=== PATIENT | female | born 1955 | race Caucasian/White ===

== ENCOUNTER → 2017-02-21 | Outpatient (CLI) | payer OTHER ==
[2016-09-22 11:00] VITALS: BP 119/54
[~2017-02-21] MED LIST: CHOL100013 PO; CYAN25008 PO; HYDR-2666 PO; IBUP-1007 PO; POTA10TA5 PO; TRAM50TA PO
--- NOTE | 2017-02-21 13:05 | RAD ---
Abdominal ultrasound, 02/21/2017: History: Left-sided abdominal swelling and bloating The gallbladder is surgically absent. The liver is enlarged measuring 18 cm in craniocaudad extent at the level of the right lobe. It demonstrates generalized increased echogenicity, most commonly due to fatty change. No hepatic mass is identified. The pancreas was obscured by overlying bowel. The spleen is of normal size. No renal abnormality is detected. The abdominal aorta and inferior vena cava were largely obscured by overlying bowel. No free fluid is evident in the abdomen. IMPRESSION: 1. Status post cholecystectomy. 2. Mild hepatomegaly with increased hepatic echogenicity suggesting fatty change. 3. The pancreas and central retroperitoneum were obscured by overlying bowel.
== END | disposition home or self-care (01) ==
LOC: US 10:10
PROVIDERS: ATTEND Surgery
DX: R19.09 Other intra-abdominal and pelvic swelling, mass and lump (principal); Z86.000 Personal history of in-situ neoplasm of breast
CPT/HCPCS: 76700

== ENCOUNTER → 2017-03-07 | Outpatient (CLI) | payer OTHER ==
[2016-09-22 11:00] VITALS: BP 119/54
[~2017-03-07] MED LIST changes: +KETO10TA PO; +LISI10TA2 PO
--- NOTE | 2017-03-08 01:13 | PAIN ---
DATE OF SERVICE: 03/07/2017 INITIAL CONSULTATION FOR PAIN CLINIC CHIEF COMPLAINT: Left anterior chest wall pain. HISTORY OF PRESENT ILLNESS: This is a 61-year-old female who presents with history of pain with history of left mastectomy in September 2016 with pain starting one month after the healing of the initial surgical procedure. The patient reports that she did very well with the healing, but the pain has been fairly persistent and is in a moderate to severe level of pain, rated as 6 on a scale of 10 on the anterior left chest wall just superior to the aspect of the previous mastectomy scar. The patient reports it is not tender in the scar itself or below it. She has some minor swelling below the scar, but this is not tender or significantly bothersome to her. The area above the mastectomy scar in the left anterior chest wall has some increased hypersensitivity to light touch and clothing contacting it, as well as with firmer pressure, and also with lying on her left side. When she is trying to sleep it disturbs the area ____ painful enough not to let her sleep as well. The patient reports no radiation of the pain into her arm, or back or into her neck. Rates the pain as far as limitation goes as a 4 with family and home responsibilities, recreation and sexual behavior and life support activities, 5 with occupation, 2 with social activity and 0 with self-care activities. The patient has good mobility of the left shoulder and demonstrates that freely without significant limitation of pain involved with rotational motion of the left shoulder. The patient reports no other complaints at this time. PAST MEDICAL HISTORY: Significant for hypertension, left ductal carcinoma in situ, status post mastectomy, again 09/2016 with history of anemia, history of headaches and urinary frequency. Other surgeries include appendectomy, cholecystectomy and hysterectomy. CURRENT MEDICATIONS: Include lisinopril, tramadol, multivitamins, and ibuprofen over the counter. ALLERGIES: The patient reports the tramadol helps the pain to about a 50% level, Tylenol as well and less so with ibuprofen. ALLERGIES: THE PATIENT IS ALLERGIC TO SULFA AND CODEINE WELL ASPIRIN. FAMILY HISTORY: Significant for cancer in the patient's father, also heart disease in her father and blood pressure issues in both parents. SOCIAL HISTORY: The patient does not smoke, does not drink alcohol, is , lives with her spouse, lives locally in [place], [place]. REVIEW OF SYSTEMS: The patient's review of systems is positive for those items mentioned in history of present illness. All systems reviewed and otherwise negative. It is complete, full and well documented on the patient's chart. PHYSICAL EXAMINATION: VITAL SIGNS: Blood pressure 154/79, pulse 80, respirations 16 and temperature 97.0 degrees Fahrenheit. Height is 5 feet, weight is 227 pounds. GENERAL: The patient is awake, alert, oriented, appropriate, very pleasant demeanor. HEENT: Head shows normocephalic, atraumatic. Extraocular movements are intact and symmetrical. Oral cavity: Mucous membranes moist and pink. Dentition is intact. NECK: Shows anterior throat supple without palpable lymphadenopathy noted. Swallow reflex is symmetrical. CHEST: Shows previous well-healed surgical scar from mastectomy on the left side. Breath sounds are clear to auscultation bilaterally. HEART: Shows S1 and S2 clear. No murmurs auscultated. ABDOMEN: Obese, soft, nontender, nondistended. No palpable organomegaly is noted. No rebound or guarding demonstrated. BACK: The patient's back shows midline spine with minor increase in thoracic kyphosis, but normal lumbar lordotic curvature without significant tenderness throughout. MUSCULOSKELETAL: With inspection of the patient's anterior chest and palpation shows even with light touch some increased hyperesthesia with the light touch over the left anterior chest superior to the surgical scar in approximately the mid axillary line extending medially to the sternocostal cartilage and laterally to the axillary fold. No discoloration, no bruising, no radiation of pain. With deeper palpation pain sensation is essentially only slightly increased when not severe in nature, but certainly palpable in a fairly well circumscribed area over the left anterior chest wall, ribs are easily palpable, no fractures are palpated. No abnormalities and no significant tenderness in the costochondral cartilages as well. No specific allodynia is elicited, but just some hyperesthesia over the area. IMPRESSION: This is a 61-year-old female with history of mastectomy secondary to ductal carcinoma in situ in 09/2016 with some postoperative pain consistent with some neuropathic qualities over the left anterior chest wall. PLAN: Options were discussed with the patient. We will proceed with initiating Neurontin at 100 mg 3 times daily as tolerated. Also, we will prescribe Lidoderm patches for the area. She will return in approximately 4 weeks for followup. The patient was given instruction as well as side effects to be aware with the medications. If not significantly improved, we will try a potential local infiltration field block in the area of the pain as well. The patient is pleased with the plan of treatment at this time and will follow up in approximately 4 weeks as scheduled. KATHY BREWSTER MD DR: MAKI/brandon JOB#: [id number] / [id number] LÓPEZ Willis MD
== END | disposition home or self-care (01) ==
LOC: PNCL 10:30
PROVIDERS: ATTEND Anesthesiology
DX: R07.89 Other chest pain (principal)
CPT/HCPCS: 99214

== ENCOUNTER → 2017-04-12 | Outpatient (CLI) | payer OTHER ==
[2016-09-22 11:00] VITALS: BP 119/54
[~2017-04-12] MED LIST changes: +BUPIVACAINE MPF 0.25% 10 ML VIAL. ONE; -HYDR-2666 PO; +HYDR-2758 PO; +methylPREDNISolone ACETATE 40 MG/ML VIAL. ONE
--- NOTE | 2017-04-13 01:31 | PAIN ---
DATE OF SERVICE: 04/12/2017 PROGRESS NOTE FOR PAIN CLINIC DIAGNOSES: Post-surgical pain, status post left mastectomy with left chest wall pain. HISTORY OF PRESENT ILLNESS: The patient is a 61-year-old female who returns for followup status post initial evaluation and medication management with Neurontin and Lidoderm patches. The patient reporting about 25% improvement with the patches the Neurontin. The patient reports she is having some fairly significant drowsiness with the medication, the Neurontin that is otherwise no significant side effects from it. The patient reports that she does feel slightly better, still there is some difficulty sleeping at night. The pain does awaken her, but not every night. The patient reports it is a burning, stabbing, sharp pain that is on and off in intensity, significantly decreased with the Lidoderm patches on the left anterior chest at the area of her left mastectomy which was in 09/2016. The patient reports no new motor or sensory deficits. No new findings or other complaints. PHYSICAL EXAMINATION: VITAL SIGNS: Today, the patient's blood pressure is 111/69, pulse 78, respirations 18, temperature is 97.6 degrees Fahrenheit, height is 5 feet 2 inches, weighs 228 pounds. GENERAL: The patient is awake, alert, oriented, appropriate, very pleasant demeanor. HEENT: Head shows normocephalic, atraumatic. Extraocular movements are intact and symmetrical. Oral cavity shows mucous membranes moist and pink. Dentition is intact. NECK: Shows anterior throat supple without palpable lymphadenopathy noted. Swallow reflex is symmetrical. CHEST: Shows normal on inspection with previous surgical mastectomy on the left side. HEART: With inspection, the heart shows S1 and S2 clear. No murmurs auscultated. With inspection on the left anterior chest, there is some significant tenderness superior to the area of the surgical scar, without significant tenderness inferior to the surgical scar region. This is true throughout the length of the scar with the exception of the last 5 cm distally towards the axilla. No erythema is noted. No abnormalities were palpated. Options were discussed with the patient. The patient's old chart was reviewed as her current medication regimen updated. Current review of systems updated today as well. We will proceed with local peripheral nerve infiltration in the field block fashion of the scar itself on the left side. Risks were discussed including but not limited to bleeding, infection, possibility of intravascular injection sequelae, pneumothorax, side effects of steroid medication, spread of local anesthetic and numbness as well as poor results regarding pain control. The patient understands and wishes to proceed. The patient will return to clinic in approximately 3 weeks for followup, was counseled on return appointment, activity level and side effects to be aware of. Also, we will increase the patient's Neurontin to 200 mg at bedtime and 100 mg in morning and afternoon and maintain Lidoderm patches as prescribed. DIAGNOSES: Postsurgical pain, status post left mastectomy. PROCEDURE: Left peripheral nerve field block, left anterior chest under sterile prep and drape using local anesthetic. Medication injected was total of 40 mg of Depo-Medrol plus total of 10 mL preservative-free 0.25% bupivacaine. CONDITION ON DISCHARGE: Stable. The patient tolerated the procedure well, had no complications. KATHY BREWSTER MD DR: MAKI/brandon JOB#: [id number] / [id number]
== END | disposition home or self-care (01) ==
LOC: PNCL 10:20
PROVIDERS: ATTEND Anesthesiology
DX: G89.18 Other acute postprocedural pain (principal); I10 Essential (primary) hypertension; E66.9 Obesity, unspecified; Z90.49 Acquired absence of other specified parts of digestive tract; Z90.12 Acquired absence of left breast and nipple; Z90.710 Acquired absence of both cervix and uterus
CPT/HCPCS: 64450; J1030; J3490

== ENCOUNTER → 2017-05-03 | Outpatient (CLI) | payer OTHER ==
[2016-09-22 11:00] VITALS: BP 119/54
[~2017-05-03] MED LIST changes: +IOHEXOL 180 MG/ML 10 ML VIAL. ONE; +methylPREDNISolone ACETATE 80 MG/ML VIAL. ONE
== END | disposition home or self-care (01) ==
LOC: PNCL 09:44
PROVIDERS: ATTEND Anesthesiology
DX: G89.18 Other acute postprocedural pain (principal); I10 Essential (primary) hypertension; E66.9 Obesity, unspecified; Z68.44 Body mass index [BMI] 60.0-69.9, adult; Z90.710 Acquired absence of both cervix and uterus; Z88.6 Allergy status to analgesic agent; Z88.2 Allergy status to sulfonamides; Z79.82 Long term (current) use of aspirin
CPT/HCPCS: 64450; J1030; J3490; J1040

== ENCOUNTER → 2017-08-14 | Outpatient (CLI) | payer OTHER ==
[2016-09-22 11:00] VITALS: BP 119/54
[~2017-08-14] MED LIST changes: -BUPIVACAINE MPF 0.25% 10 ML VIAL. ONE; -IOHEXOL 180 MG/ML 10 ML VIAL. ONE; -methylPREDNISolone ACETATE 40 MG/ML VIAL. ONE; -methylPREDNISolone ACETATE 80 MG/ML VIAL. ONE
--- NOTE | 2017-08-14 13:24 | RAD ---
DATE: 08/14/2017 EXAM: DIGITAL DIAGNOSTIC RT HISTORY: The history of left breast malignancy with subsequent mastectomy is noted. The patient reports inversion of her right nipple over the past 4 months COMPARISON: 02/09/2016 This study was interpreted with the benefit of Computerized Aided Detection (CAD ). FINDINGS: Breast Density: SCATTERED The breast parenchyma shows scattered fibroglandular densities. Breast parenchyma level B. Scattered benign-appearing calcifications are noted on the conventional images there is a density seen laterally in the right breast on the CC image. Additional images were obtained and a definite mass or abnormality laterally in the breast is not seen although the density does persist on the rolled medial view. It likely reflects summation artifact. Targeted ultrasound to the lateral aspect of the breast was performed. No definite abnormality is seen corresponding to the density (again probably reflecting summation artifact) laterally in the breast. Ultrasound targeted to the periareolar position of the breast was also performed. At the 12:30 position of the breast 3 cm from the nipple is a nonvascular mass which is probably benign. Biopsy is not felt warranted at this time but follow-up targeted ultrasound and mammography in 3-4 months is advised IMPRESSION: Probable benign mammographic and ultrasound findings as outlined above. Follow-up mammography and targeted ultrasound in 3-4 months advised BI-RADS CATEGORY: 3 PROBABLE BENIGN FINDING(S-SHORT INTERVAL FOLLOW-UP SUGGESTED RECOMMENDED FOLLOW-UP: 3M 3 MONTH FOLLOW-UP PQRS compliance statement: Patient information was entered into a reminder system with a target due date 12/15/2017 for the next mammogram. Mammography is a sensitive method for finding small breast cancers, but it does not detect them all and is not a substitute for careful clinical examination. A negative mammogram does not negate a clinically suspicious finding and should not result in delay in biopsying a clinically suspicious abnormality. "Our facility is accredited by the [employer] Mammography Program." MTDD
== END | disposition home or self-care (01) ==
LOC: MAMMO 09:15
PROVIDERS: ATTEND Surgery
DX: R92.2 Inconclusive mammogram (principal); Z85.3 Personal history of malignant neoplasm of breast
CPT/HCPCS: 76641; G0206; 77065

== ENCOUNTER → 2017-08-29 | Outpatient (CLI) | payer OTHER ==
[2016-09-22 11:00] VITALS: BP 119/54
[~2017-08-29] VITALS: Ht 157.5 cm; Wt 106.1 kg
[~2017-08-29] MED LIST changes: +LIDOCAINE 2%/EPI 1:100,000 20 ML VIAL. IJ ONE
--- NOTE | 2017-08-30 14:43 | PATHOLOGY ---
PATHOLOGY REPORT * * * * * * * * FINAL DIAGNOSIS: Breast tissue, right breast mass core biopsies: - Fibrocystic changes with the following components: - Stromal fibrosis. - Duct ectasia. - Periductal chronic inflammation, focal. - Cystic change. - Apocrine metaplasia, focal. - Mild ductal epithelial hyperplasia, focal. - Focal medial arterial calcification and few microcalcifications of breast. COMMENT: There is no atypia or evidence of malignancy. (JPM:rlm; 08/30/2017) REPORT ELECTRONICALLY SIGNED BY: Phillip Marks M.D. DATE/TIME: 08/30/2017 14:42 * * * * * * * * GROSS PATHOLOGY: A. In formalin labeled "Hue Flowers, right breast 12:30" and consists of multiple tissue cores/fragments aggregating to 1.5 x 1.0 x 0.4 cm. The cold ischemic time is 5 minutes. The formalin fixation time is 10 hours. Totally submitted as A1. (DEISI; 08/29/2017) INITIAL CPT CODE(S): A; 89887 Professional services performed [place] [address] Technical services performed by [facility] at [address] [place] [address]. SPECIMEN(S) RECEIVED: A.Right breast mass CLINICAL HISTORY: Right breast mass PATIENT: HUE FLOWERS /AGE: 11 1955 (Age: 61) PATIENT #: [id number] ALT CASE #: SPECIMEN COLLECTION DATE: 08/29/2017 SPECIMEN RECEIVED DATE: 08/29/2017 [facility] - [address] [place] [address] - PHONE: [phone] * * * END OF REPORT * * *
== END | disposition home or self-care (01) ==
LOC: US 08:09
PROVIDERS: ATTEND Surgery
DX: N63.10 Unspecified lump in the right breast, unspecified quadrant (principal)
CPT/HCPCS: 76942; 88305; C1713; G0206; 77065

== ENCOUNTER → 2018-02-05 | Outpatient (CLI) | payer OTHER | END | disposition home or self-care (01) | LOC: MAMMO 10:05 | DX: R92.8 Other abnormal and inconclusive findings on diagnostic imaging of breast (principal) | CPT/HCPCS: 77065 ==

== ENCOUNTER → 2018-02-27 | Outpatient (CLI) | payer OTHER ==
[~2018-02-27] MED LIST changes: -CHOL100013 PO; +CONTRAST GIVEN MC; -CYAN25008 PO; -HYDR-2758 PO; -IBUP-1007 PO; +IOHEXOL 300 MG/ML 100ML VIAL. IJ; -KETO10TA PO; -LIDOCAINE 2%/EPI 1:100,000 20 ML VIAL. IJ ONE; -LISI10TA2 PO; -POTA10TA5 PO; -TRAM50TA PO
== END | disposition home or self-care (01) ==
LOC: MAMMO 08:07
DX: N64.52 Nipple discharge (principal); Z86.000 Personal history of in-situ neoplasm of breast
CPT/HCPCS: 76641

== ENCOUNTER → 2018-05-10 | Outpatient (CLI) | payer OTHER ==
[~2018-05-10] MED LIST changes: -CONTRAST GIVEN MC; +CONTRAST GIVEN. MC; -IOHEXOL 300 MG/ML 100ML VIAL. IJ
[2018-05-10] MEDS: IOHEXOL 240 MG/ML 50ML VIAL. PO (10:04)
[2018-05-10] MEDS: IOHEXOL 300 MG/ML 100ML VIAL. IV (10:04)
== END | disposition home or self-care (01) ==
LOC: CT 08:09
DX: K21.9 Gastro-esophageal reflux disease without esophagitis (principal); K76.0 Fatty (change of) liver, not elsewhere classified; I10 Essential (primary) hypertension; Z90.49 Acquired absence of other specified parts of digestive tract
CPT/HCPCS: 74177; Q9966; Q9967

== ENCOUNTER → 2018-08-13 | Outpatient (CLI) | payer OTHER ==
[2016-09-22 11:00] VITALS: BP 119/54
[~2018-08-13] MED LIST changes: +CHOL100013 PO; -CONTRAST GIVEN. MC; +CYAN25008 PO; +HYDR-2758 PO; +IBUP-1007 PO; +KETO10TA PO; +LISI10TA2 PO; +OMEP20CA9 PO; +POTA10TA12 PO; +TRAM50TA PO
--- NOTE | 2018-08-13 09:29 | RAD ---
DATE: 08/13/2018 EXAM: DIGITAL DIAGNOSTIC RT HISTORY: Follow-up benign breast biopsy COMPARISON: 02/05/2018, 08/29/2017 This study was interpreted with the benefit of Computerized Aided Detection (CAD). Breast Density: SCATTERED The breast parenchyma shows scattered fibroglandular densities. Breast parenchyma level B. FINDINGS: An old breast biopsy marker is again noted in the retroareolar region. No new or enlarging breast densities are seen. Numerous benign type calcifications are present. No suspicious microcalcifications have developed. IMPRESSION: Stable right mammograms without evidence of malignancy. BI-RADS CATEGORY: 2 BENIGN FINDING(S) RECOMMENDED FOLLOW-UP: 12M 12 MONTH FOLLOW-UP PQRS compliance statement: Patient information was entered into a reminder system with a target due date for the next mammogram. Mammography is a sensitive method for finding small breast cancers, but it does not detect them all and is not a substitute for careful clinical examination. A negative mammogram does not negate a clinically suspicious finding and should not result in delay in biopsying a clinically suspicious abnormality. "Our facility is accredited by the [employer] Mammography Program."
== END | disposition home or self-care (01) ==
LOC: MAMMO 08:56
PROVIDERS: ATTEND Surgery
DX: R92.8 Other abnormal and inconclusive findings on diagnostic imaging of breast (principal)
CPT/HCPCS: 77065

== ENCOUNTER → 2019-08-12 | Outpatient (CLI) | payer MEDICARE ==
[2016-09-22 11:00] VITALS: BP 119/54
[~2019-08-12] MED LIST changes: -HYDR-2758 PO; +HYDR-2761 PO; +OMEP20CA10 PO; -OMEP20CA9 PO; +REGADENOSON 0.4 MG/5 ML DISP.SYRIN. IV ONE
--- NOTE | 2019-08-13 13:21 | RAD ---
MR#: [id number] Date of Study: 08/13/2019 Ordering Physician: NAOMI PERES, Referring Physician: ROBERTO ALEXANDRE Tech: RT Paul Chirinos) (N) APPROVED REPORT Test Type: Pharmacological Stress Nurse/Tech: ISHA LUTHER Test Indications: CHEST PAIM, SOB, PALPITATIONS, SWEATS Cardiac History: HTN, See Electronic Medical Record Medications: SEE EMR Medical History: SEE EMR, LEFT MASTECTOMY Resting ECG: SR Resting Heart Rate: 94 bpm Resting Blood Pressure: 147/79mmHg Pretest Chest Pain: No chest pain Nurse/Tech Notes S1,S2,LUNGS CTA, DENIES SOA OR CP AT THIS TIME Consent: The procedure was explained to the patient in lay terms. Informed consent was witnessed. Geraldo eout was entered into [employer]. History and Stress Test performed by RT Richmond (Gustavo) (N) Pharm. Details Pharmacologic stress testing was performed using 0.4mg per 5ml of regadenoson given intravenously ove r 7-10 seconds. Stress Symptoms PT BECAME TACHYCARDIC AND NAUSEATED, DENIED CP POST EXERCISE Reason for Termination: Infusion complete Max HR: 135 bpm Max Blood Pressure: 158/82mmHg Blood Pressure response to exercise: Normal blood pressure response during stress. Heart Rate response to exercise: NORMAL RESPONSE TO STRESS Chest Pain: No. Arrhythmia: No. ST Change: No. INTERPRETATION Stress EKG Conclusion: The resting EKG shows a sinus rhythm with mild nonspecific ST segment changes. The stress EKG shows no significant changes from baseline. No EKG evidence of stressed induced ischemia. Imaging Protocol IMAGE PROTOCOL: Rest Tc-99m/stress Tc-99m 2 days Rest: Stress: Viability: Radiopharm.Tc99m DyispjjrwRb32s Sestamibi Qbky29aIh 30.8mCi Duration 14min. 14min. Img Date 08/12/2019 08/13/2019 Inj-Img Dtls67uuw. 60min. Rest Admin Site:IV - Right AntecubitalAdministrator:RT Taran (R)(N) Stress Admin Site: IV - Right AntecubitalAdministrator: Tg Bianchi, RT (R)(N) STRESS DATA End Diast. Vol.76.0mlLVEDV index BSA37.0ml End Syst. Vol.24.0mlLVESV index BSA12.0ml Myocardial Cusk446.0gEject. Fsvsibrq77.0% Stress Scores Regional WT0.00Summed WT3.00 Regional WM0.00Summed WM0.00 LV Perfusion The stress scans showed no significant defects. The rest scans showed no significant defects. Nuclear imaging shows no reversible ischemia or infarct. Wall Motion Normal left ventricular systolic function with no regional wall motion abnormalities and an ejection fraction of 68%. LV Perf. Quant 17 Seg. SSS1.00 17 Seg. SRS0.00 17 Seg. SDS1.00 Stress Defect Extent (% LAD)0.00Rest Defect Extent (% LAD)0.00Rev. Defect Extent (% LAD)0.00 Stress Defect Extent (% LCX) 12.50Rest Defect Extent (% LCX)0.00Rev. Defect Extent (% LCX)6.30 Stress Defect Extent (% RCA)0.00Rest Defect Extent (% RCA)0.00Rev. Defect Extent (% RCA)0.00 Stress Defect Extent (% JUAN)2.20Rest Defect Extent (% JUAN)0.00Rev. Defect Extent (% JUAN)1.10 Conclusion 1. No EKG evidence of stress-induced ischemia. 2. Nuclear imaging shows no reversible ischemia or infarct. 3. Normal left ventricular systolic function with an ejection fraction of 68%. 4. Low risk Lexiscan nuclear stress test. Signed by : Naomi Peres MD Electronically Approved : 08/13/2019 13:21:28
== END | disposition home or self-care (01) ==
LOC: NM 09:27
PROVIDERS: ATTEND Internal Medicine Cardiovascular Disease
DX: R07.9 Chest pain, unspecified (principal); R06.02 Shortness of breath; R00.2 Palpitations; R00.0 Tachycardia, unspecified; I10 Essential (primary) hypertension
CPT/HCPCS: 78452; A9500; 93017; 96376; J2785

== ENCOUNTER → 2019-08-13 | Outpatient (CLI) | payer MEDICARE ==
[2016-09-22 11:00] VITALS: BP 119/54
[~2019-08-13] MED LIST changes: -REGADENOSON 0.4 MG/5 ML DISP.SYRIN. IV ONE
--- NOTE | 2019-08-13 09:49 | CARD ---
MR#: [id number] Date of Study: 08/13/2019 Ordering Physician: NAOMI DOW, Referring Physician: NAOMI DOW, Tech: Yesica Mock APPROVED REPORT EXAM: Two-dimensional and M-mode echocardiogram with Doppler and color Doppler. Other Information Quality : AverageHR: 88bpm Technically limited study due to body habitus. INDICATION Dyspnea RISK FACTORS Hypertension Hyperlipidemia 2D DIMENSIONS RVDd2.9 (2.9-3.5cm)Left Atrium(2D)3.6 (1.6-4.0cm) IVSd0.9 (0.7-1.1cm)Aortic Root(2D)2.6 (2.0-3.7cm) LVDd4.1 (3.9-5.9cm)LVOT Diameter2.0 (1.8-2.4cm) PWd1.0 (0.7-1.1cm)LVDs3.1 (2.5-4.0cm) FS (%) 24.9 %SV37.9 ml LVEF(%)49.8 (>50%) Aortic Valve AoV Peak Radu.133.2cm/sAoV VTI25.4cm AO Peak GR.7.1mmHgLVOT Peak Radu.77.2cm/s LVOT VTI 16.88cmAO Mean GR.4mmHg HOLLY (VMAX)1.45pd0MLI (VTI)2.12cm2 Mitral Valve MV E Cmjyucey44.5cm/sMV DECEL WCVL046jv MV A Gftbdxtd88.8cm/sMV MKZ74wt E/A Ratio0.9MVA (PHT)5.97cm2 TDI E/Lateral E'10.3E/Medial E'12.1 Pulmonary Valve PV Peak Jndhdgjx712.1cm/sPV Peak Grad.4mmHg Tricuspid Valve TR P. Ssotkwwe059cq/sRAP GLSGGGCU9ntRi TR Peak Gr.17wrIvMVNV42reVg Pulmonary Vein S1 Eukuyaxr78.1cm/sD2 Bqnsknyy74.8cm/s PVa kfipfmob942yuuj LEFT VENTRICLE The left ventricle is normal size. There is borderline concentric left ventricular hypertrophy. The l eft ventricular systolic function is within normal limits. The Ejection Fraction is 55% There is norm al LV segmental wall motion. Transmitral Doppler flow pattern is Grade I-abnormal relaxation pattern. RIGHT VENTRICLE The right ventricle is normal size. There is normal right ventricular wall thickness. The right ventr icular systolic function is normal. ATRIA The left atrium size is normal. The right atrium size is normal. The interatrial septum is intact wit h no evidence for an atrial septal defect or patent foramen ovale as noted on 2-D or Doppler imaging. AORTIC VALVE The aortic valve is thickened but opens well. Doppler and Color Flow revealed no significant aortic r egurgitation. There is no significant aortic valvular stenosis. MITRAL VALVE The mitral valve is thickened but opens well. There is no evidence of mitral valve prolapse. There is no mitral valve stenosis. Doppler and Color-flow revealed trace mitral regurgitation. TRICUSPID VALVE The tricuspid valve is normal in structure and function. Doppler and Color Flow revealed trace tricus pid regurgitation with an estimated PAP of 26 mmHg. There is no tricuspid valve prolapse or vegetatio n. There is no tricuspid valve stenosis. PULMONIC VALVE Doppler and Color Flow revealed no pulmonic valvular regurgitation. There is no pulmonic valvular yamil nosis. GREAT VESSELS The aortic root is normal in size. The IVC was not visualized. PERICARDIAL EFFUSION There is no evidence of significant pericardial effusion. Critical Notification Critical Value: No <Conclusion> The left ventricular systolic function is within normal limits. The Ejection Fraction is 55% There is normal LV segmental wall motion. Signed by : Hugo Ayala, Electronically Approved : 08/13/2019 09:49:01
== END | disposition home or self-care (01) ==
LOC: ECHO 08:22
PROVIDERS: ATTEND Internal Medicine Cardiovascular Disease
DX: R06.09 Other forms of dyspnea (principal)
CPT/HCPCS: 93306

== ENCOUNTER → 2019-10-16 | Outpatient (CLI) | payer MEDICARE ==
[2016-09-22 11:00] VITALS: BP 119/54
[~2019-10-16] MED LIST changes: +OMEP-229 PO; -OMEP20CA10 PO
--- NOTE | 2019-10-17 16:07 | RAD ---
DATE: 10/16/2019 EXAM: MAMMO PRATEEK DIAG RT HISTORY: Abnormal mammogram COMPARISON: 08/14/2017, 08/29/2017, 02/05/2018 right unilateral diagnostic mammographic exams This study was interpreted with the benefit of Computerized Aided Detection (CAD). Breast Density: SCATTERED The breast parenchyma shows scattered fibroglandular densities. Breast parenchyma level B. FINDINGS: In addition to standard images, spot magnification imaging of right upper outer breast calcifications was performed. Right upper outer breast calcifications are present. These appears slightly increased since the prior examination. IMPRESSION: Indeterminate right upper-outer breast calcifications. BI-RADS CATEGORY: 4 SUSPICIOUS ABNORMALITY- BIOPSY SHOULD BE CONSIDERED RECOMMENDED FOLLOW-UP: BIO BIOPSY RECOMMENDED. Stereotactic biopsy of right upper-outer breast calcifications is recommended. Patient was informed of findings and recommendations at the time of her visit. Dr. Contreras was contacted. RS compliance statement: Patient information was entered into a reminder system with a target due date for the next mammogram. Mammography is a sensitive method for finding small breast cancers, but it does not detect them all and is not a substitute for careful clinical examination. A negative mammogram does not negate a clinically suspicious finding and should not result in delay in biopsying a clinically suspicious abnormality. "Our facility is accredited by the [employer] Mammography Program."
== END | disposition home or self-care (01) ==
LOC: MAMMO 09:24
PROVIDERS: ATTEND Surgery
DX: R92.1 Mammographic calcification found on diagnostic imaging of breast (principal); Z85.3 Personal history of malignant neoplasm of breast
CPT/HCPCS: 77065; G0279; 77061

== ENCOUNTER → 2019-11-12 | Outpatient (CLI) | payer MEDICARE ==
[2016-09-22 11:00] VITALS: BP 119/54
[~2019-11-12] MED LIST changes: +AMLO5TAB10 PO; +ATOR20TA58 PO; +LIDOCAINE 2%/EPI 1:100,000 20 ML VIAL. IJ ONE; +LIDOCAINE WITH 8.4% SOD BICARB 3 ML DISP.SYRIN. INJ ONE; +LOSA25TA54 PO; -OMEP-229 PO; +OMEP20CA16 PO; +OMEP40CA45 PO
--- NOTE | 2019-11-12 16:37 | RAD ---
Examination: STEREOTACTIC BREAST BIOPSY RT, DIGITAL DIAGNOSTIC RT History: Right breast microcalcifications Comparison/Correlation: 09/16/2019 diagnostic mammographic Exam Findings: Risks and benefits of stereotactic right breast biopsy procedure were discussed with the patient and informed consent was obtained. Initially, a lateral approach was planned. Due to vasculature along the expected needle course by using a lateral approach, a superior approach was utilized. Preliminary image was acquired. Stereotactic images were then acquired. Cleansing with Betadine was performed along the superior aspect of the right outer breast. 5 cc 1 percent lidocaine was administered at the interspace at site of scalpel incision placement and more deeply to the level of the calcifications. A gauge core biopsy needle was placed into the right breast. Stereotactic images were acquired to confirm placement. The needle was fired and stereotactic images again were obtained confirming needle placement. A total of 12 samples were obtained. The patient did experience pain and has result 10 cc 1 percent lidocaine with epinephrine was administered during obtaining of the biopsies. 5 cc 1 percent lidocaine was also administered. Specimen radiograph obtained demonstrates microcalcifications within the obtained sample. Larger coarse calcifications also are seen. Biopsy clip marker was then placed. Subsequent ML and CC images of the right breast were obtained and reviewed on a mammography workstation. Clip marker is evident at the right upper outer aspect at the site of previously demonstrated calcifications. No hematoma collection although slightly high density which may represent edema and minimal hemorrhage is noted at the biopsy site. Impression: Successful stereotactic biopsy of the right upper outer breast where calcifications were noted on previous mammographic exam. Specimen sent to the lab. The patient tolerated the procedure well without immediate complications. PQRS Compliance Statement: One or more of the following individualized dose reduction techniques were utilized for this examination: 1. Automated exposure control 2. Adjustment of the mA and/or kV according to patient size 3. Use of iterative reconstruction technique Electronically signed by: Lukasz Melgar MD (11/12/2019 4:35 PM) [facility]
--- NOTE | 2019-11-14 15:07 | PATHOLOGY ---
[facility] Accession Number: [id number] . 01 Material submitted: . breast - RIGHT BREAST TISSUE, SUPERIOR LATERAL. Modifiers: right, superior, lateral . 01 Clinical history: . Right breast microcalcifications . 01 Frozen section diagnosis: . . /QMS . 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 SEE COMMENT. - Proliferative fibrocystic changes with focal florid ductal epithelial hyperplasia. (JPM:jorge luis/tania; 11/14/2019) MBR 11/14/2019 1446 Local . 02 Comment: Sections of the right superior lateral breast needle biopsy reveal areas of low-grade ductal carcinoma in situ of cribriform type. There are a few small foci of invasive mammary carcinoma, each measuring no more than 1 mm in greatest dimension. Tumor cells show focal tubule formation and are focally present in infiltrating cords. The invasive tumor shows low-grade nuclei and no significant mitotic activity. A limited panel of immunoperoxidase stains is obtained on block A3 and yields the following results: . P63: Absence of myoepithelial cells within area of invasive tumor; presence of myoepithelial cells within DCIS. AE1/AE3: DCIS positive; invasive carcinoma absent in level examined. E-cadherin: DCIS positive; invasive carcinoma absent in level examined. . The morphologic findings are supportive of the diagnosis of microinvasive ductal carcinoma, histologic grade I, arising within a background of low-grade ductal carcinoma in situ of cribriform type. The biopsy otherwise shows proliferative fibrocystic changes with focal moderate/florid ductal epithelial hyperplasia. There are microcalcifications identified, which are primarily associated with fibrocystic changes. An attempt will be made to obtain breast prognostic studies on block A3, although the invasive tumor may not be present in the deeper levels needed for these studies. . The case is also examined by Dr. Ruiz, who concurs with the diagnosis. . (JPM:parking enforcement manager; 11/14/2019) Special stains performed: Immunoperoxidase stains for p63, AE1/AE3, and E-cadherin on A3. . 02 Electronically signed: . Phillip Marks MD, Pathologist NPI- [id number] . 01 Gross description: . The specimen is received in formalin, labeled "Hue Ambrocio, right breast tissue superior lateral". Received within a plastic cassette are multiple needle cores of fibrofatty tissue measuring 3.2 x 3.1 x 0.5 cm in aggregate dimensions. The specimen is submitted entirely in cassettes A1 through A3. The cold ischemic time is 11 minutes. The total formalin fixation time is 12 hours and 35 minutes. ([facility]; 11/12/2019) QAC/QAC 11/12/2019 1514 Local . 02 Pathologist provided ICD-10: C50.911, D05.11, N60.11, N62 . 02 CPT . 366554, T50555, [id number] Specimen Comment: A courtesy copy of this report has been sent to [phone], [phone] Specimen Comment: [id number], Specimen Comment: Report sent to ,DR RIOS / DR LYNCH Performed at: 01 [facility] [address], [place], [place] [id number] MD Samm Garcia MD Phone: [phone] Performed at: 02 [facility] [address], [place] [id number] MD Phillip Marks MD Phone: [phone]
== END ==
LOC: MAMMO 07:34
PROVIDERS: ATTEND Surgery
DX: R92.0 Mammographic microcalcification found on diagnostic imaging of breast (principal); C50.911 Malignant neoplasm of unspecified site of right female breast
CPT/HCPCS: 19081; 77022; 77065; 88305; 88341; 88342; 88361; C1713; J3490; 19085

== ENCOUNTER 2019-12-02 07:27 | Observation (INO) | payer MEDICARE ==
[~2019-12-02] VITALS: Ht 167.6 cm; Wt 106.3 kg
[2019-12-02] VITALS (9 sets, daily range): BP systolic 104–155; BP diastolic 52–77
[~2019-12-02 07:27] MED LIST changes: +IV RINGERS,LACTATED 1000ML 1,000 ML IV SCH; +LIDOCAINE 1% PF 2 ML VIAL. ID PRN; -LIDOCAINE 2%/EPI 1:100,000 20 ML VIAL. IJ ONE; -LIDOCAINE WITH 8.4% SOD BICARB 3 ML DISP.SYRIN. INJ ONE; +ONDANSETRON PF 4 MG/2 ML VIAL. IV PRN; +PROCHLORPERAZINE 10 MG/2 ML VIAL. IV PRN; +fentaNYL PF VIAL 100 MCG/2 ML VIAL IV PRN
[2019-12-02] MEDS ORDERED: SCOPOLAMINE 1.5MG PATCH. TD ONE (08:00)
[2019-12-02] MEDS ORDERED: fentaNYL PF VIAL 100 MCG/2 ML VIAL ONE ×4 (08:07→13:21)
[2019-12-02] MEDS ORDERED: SEVOFLURANE 61 TO 120 MINUTES. IH ONE (08:07)
[2019-12-02] MEDS ORDERED: MIDAZOLAM HCL/PF 2 MG/2 ML VIAL. ONE (08:07)
[2019-12-02] MEDS ORDERED: LIDOCAINE 2% PF 5 ML VIAL. ONE (08:08)
[2019-12-02] MEDS ORDERED: PROPOFOL 20 ML IV ONE (08:08)
[2019-12-02] MEDS ORDERED: GLYCOPYRROLATE 1 MG/5 ML VIAL. ONE (08:08)
[2019-12-02] MEDS ORDERED: DEXAMETHASONE SOD PHOS 4 MG/ML VIAL ONE (08:08)
[2019-12-02] MEDS ORDERED: ROCURONIUM 50 MG/5 ML VIAL. ONE (08:08)
[2019-12-02] MEDS ORDERED: NEOSTIGMINE METHYLSULFATE 5 MG/5 ML SYRINGE. ONE (08:08)
[2019-12-02] MEDS ORDERED: ONDANSETRON PF 4 MG/2 ML VIAL. ONE (08:08)
[2019-12-02] MEDS ORDERED: ISOSULFAN BLUE 1% 50 MG/5 ML VIAL. SQ ONE (09:18)
--- NOTE | 2019-12-02 09:40 | RAD ---
EXAM: RIGHT BREAST LYMPHOSCINTIGRAPHY. HISTORY: Right breast cancer. Lymphoscintigraphy is requested. FINDINGS: The procedure along with its risks and benefits were explained to the patient. She agreed to proceed. A timeout procedure was performed. The skin about the right areola was sterilely prepped. 900 uCi Tc-99m Tilmanocept was injected intradermally at the right upper outer quadrant of the right areola. Imaging was not performed. The patient was transferred to the OR for additional procedures. IMPRESSION: 1. Successful right breast injection for lymphoscintigraphy. Electronically signed by: Kenroy Mcfadden MD (12/02/2019 9:37 AM) [facility]
[2019-12-02] MEDS ORDERED: PHENYLEPHRINE in 0.9% NACL PF 1 MG/10 ML SYRINGE. IV ONE (10:57)
--- NOTE | 2019-12-02 12:17 | PDOC4 ---
Operative Note Operative Note Operative Note: Preoperative Diagnosis: Right breast microinvasive carcinoma with DCIS Postoperative Diagnosis: Same Procedure: Right simple mastectomy with sentinel lymph node biopsy Surgeon: Ben Fur Storage Clerk: Yue Chance Anesthesia: Gen. EBL: 100 ml Specimen: Right breast stitch at 12 o'clock position to pathology Drains: 19 Filipino AUTUMN 2 Complications: None Indication: The patient is a 64-year-old female with a prior history of left breast ductal carcinoma in situ. 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 She strongly prefers for complete mastectomy and has no interest in breast conservation. The plan therefore is a simple mastectomy and we will incorporate a sentinel lymph node biopsy. The risks of surgery were discussed which include bleeding, infection, pain, scar tissue, wound healing problems, anesthetic risk, potential need for additional surgery or procedure. She understands and would like to proceed. Description: The patient was taken the operating room and placed supine on the operating table. Gen. anesthesia was performed. The bilateral chest and right axilla were prepped with ChloraPrep and draped in a standard surgical manner. 5 mL of Lymphazurin were injected deep to the right nipple and areolar complex. Several minutes were allowed to elapse. An elliptical tracing was made across the chest including the nipple areolar complex. The superior lateral aspect of the tracing was incised with a scalpel. Cautery dissection was carried down into the axillary tissues. There was one lymph node showing markedly increased nuclear uptake with a blue channel consistent with a sentinel lymph node. This was harvested from surrounding tissues and sent to pathology. Following this there were no other areas of increased nuclear uptake, blue staining, or palpable adenopathy. Frozen section of the lymph node showed no evidence of metastasis. We then proceeded with the mastectomy. With a scalpel an incision was made at the prior elliptical tracing. Cautery dissection was used to develop the skin flaps. The superior flap was developed first the breast from the skin. This was carried superiorly to below the level of the clavicle. In a similar manner this inferior skin flap was mobilized which included the inframammary fold. In a medial to lateral fashion the right breast was taken off of the chest wall. Several blood vessels were encountered which were readily cauterized. The entire breast was fully excised and a stitch was used to danny the 12 o'clock position. The breast was sent to pathology. Two 19 Filipino round Radhames drains were placed both in the axilla and right chest. The drains exited inferiorly and were secured to the skin with 2-0 silk. The subcutaneous tissue was closed with interrupted 3-0 Vicryl. The skin was closed with 4-0 Monocryl. A sterile OpSite dressing was applied. The patient tolerated the procedure well and was sent to the recovery room in stable condition. At the end the case all counts were correct. LÓPEZ RIOS MD Dec 02, 2019 12:17
[2019-12-02] MEDS: IV NORMAL SALINE 1000ML BAG 1,000 ML IV SCH (12:18)
[2019-12-02] MEDS ORDERED: NALOXONE 0.4 MG/ML VIAL. IV PRN (12:30)
[2019-12-02] MEDS ORDERED: ONDANSETRON PF 4 MG/2 ML VIAL. IVP PRN (12:30)
[2019-12-02] MEDS ORDERED: 0.9 % SODIUM CHLORIDE 10 ML DISP.SYRIN. IV PRN (12:30)
[2019-12-02] MEDS ORDERED: PROCHLORPERAZINE 10 MG/2 ML VIAL. ONE (12:50)
[2019-12-02] MEDS: fentaNYL PF VIAL 100 MCG/2 ML VIAL IV PRN ×2 (12:57→13:11)
[2019-12-02] MEDS: amLODIPine BESYLATE 5 MG TABLET PO SCH (13:00)
[2019-12-02] MEDS: CYANOCOBALAMIN (VITAMIN B-12) 1,000 MCG TABLET. PO SCH (13:00)
[2019-12-02] MEDS: LOSARTAN POTASSIUM 25 MG TABLET. PO SCH (13:00)
[2019-12-02] MEDS: CHOLECALCIFEROL (VITAMIN D3) 1,000 UNIT TABLET PO SCH (13:00)
[2019-12-02] MEDS: IV 1/2 NORMAL SALINE 1,000 ML IV SCH (15:15)
[2019-12-02] MEDS: PANTOPRAZOLE 40 MG TABLET.DR. PO SCH (16:58)
[2019-12-02] MEDS: HYDROcodone/APAP 5/325MG 1 TAB TABLET PO PRN ×2 (18:59→22:26)
[2019-12-02] MEDS ORDERED: ATORVASTATIN CALCIUM 20 MG TABLET PO SCH (21:00)
[2019-12-02] MEDS: HYDROmorphone 2 MG/ML VIAL IV PRN (23:54)
[2019-12-03] MEDS: IV 1/2 NORMAL SALINE 1,000 ML IV SCH ×2 (00:48→13:18)
[2019-12-03 03:00] VITALS: BP 167/76
[2019-12-03] MEDS: HYDROmorphone 2 MG/ML VIAL IV PRN ×2 (03:59→13:50)
[2019-12-03] MEDS: PANTOPRAZOLE 40 MG TABLET.DR. PO SCH (05:10)
[2019-12-03] MEDS: HYDROcodone/APAP 5/325MG 1 TAB TABLET PO PRN ×3 (05:10→16:21)
[2019-12-03 07:00] VITALS: BP 142/79
[2019-12-03] MEDS: LOSARTAN POTASSIUM 25 MG TABLET. PO SCH (08:50)
[2019-12-03] MEDS: CHOLECALCIFEROL (VITAMIN D3) 1,000 UNIT TABLET PO SCH (08:50)
[2019-12-03] MEDS: amLODIPine BESYLATE 5 MG TABLET PO SCH (08:51)
[2019-12-03] MEDS: CYANOCOBALAMIN (VITAMIN B-12) 1,000 MCG TABLET. PO SCH (08:51)
[2019-12-03 11:00] VITALS: BP 163/69
[2019-12-03] MEDS: IV NORMAL SALINE 1000ML BAG 1,000 ML IV SCH (12:18)
--- NOTE | 2019-12-03 12:58 | NUR ---
SW following. Discussed with RN, pt is from home with . RN advised no SW needs at this time. SW will continue to follow should any discharge planning needs arise.
--- NOTE | 2019-12-03 13:48 | PDOC ---
PROGRESS NOTES Subjective Subjective doing ok, some nausea earlier but improving Objective Objective Vital Signs Date Time Temp Pulse Resp B/P (MAP) Pulse Ox O2 Delivery O2 Flow Rate FiO2 12/03/19 13:03 Room Air 12/03/19 11:00 98.0 91 18 163/69 (100) 93 98.0 12/02/19 22:26 2.0 Intake and Output 12/03/19 07:00 Intake Total 2265 ml Output Total 1160 ml Balance 1105 ml Intake Oral 715 ml IV Total 1550 ml Output Drainage Total 1060 ml Estimated Blood Loss 100 ml # Voids 3 Physical Exam Physical Exam AUTUMN drains with bloody output Abdomen: Soft, No tenderness Assessment Assessment POD 1 R mastectomy Plan Plan of Care Drain output significant; will check CBC; if ok then ok to discharge later today Comment Review of Relevant I have reviewed the following items danny (where applicable) has been applied. Medications Current Medications Ondansetron HCl (Zofran) 4 mg PRN Q6HRS PRN IV NAUSEA/VOMITING; Start 12/02/19 at 07:00; Stop 12/03/19 at 06:59; Status DC Fentanyl Citrate (Fentanyl 2ml Vial) 25 mcg PRN Q5MIN PRN IV MILD PAIN 1-3; Start 12/02/19 at 07:00; Stop 12/03/19 at 06:59; Status DC Fentanyl Citrate (Fentanyl 2ml Vial) 50 mcg PRN Q5MIN PRN IV MODERATE TO SEVERE PAIN Last administered on 12/02/19at 13:11; Start 12/02/19 at 07:00; Stop 12/03/19 at 06:59; Status DC Ringer's Solution 1,000 ml @ 30 mls/hr Q24H IV Last administered on 12/02/19at 08:12; Start 12/02/19 at 07:00; Stop 12/02/19 at 18:59; Status DC Lidocaine HCl (Xylocaine-Mpf 1% 2ml Vial) 2 ml PRN 1X PRN ID PRIOR TO IV START; Start 12/02/19 at 07:00; Stop 12/03/19 at 06:59; Status DC Prochlorperazine Edisylate (Compazine) 5 mg PACU PRN PRN IV NAUSEA, MRX1 Last administered on 12/02/19at 12:57; Start 12/02/19 at 07:00; Stop 12/03/19 at 06:59; Status DC Cefazolin Sodium/ Dextrose 50 ml @ 100 mls/hr 1X PREOP PRN IV PRIOR TO PROCEDURE Last administered on 12/02/19at 09:35; Start 12/02/19 at 06:00; Stop 12/02/19 at 18:00; Status DC Scopolamine (Transderm-Scop) 1 patch 1X ONCE TD Last administered on 12/02/19at 08:12; Start 12/02/19 at 08:00; Stop 12/02/19 at 08:01; Status DC Sevoflurane (Ultane) 60 ml STK-MED ONCE IH ; Start 12/02/19 at 08:07; Stop 12/02/19 at 08:07; Status DC Midazolam HCl (Versed) 2 mg STK-MED ONCE .ROUTE ; Start 12/02/19 at 08:07; Stop 12/02/19 at 08:08; Status DC Fentanyl Citrate (Fentanyl 2ml Vial) 100 mcg STK-MED ONCE .ROUTE ; Start 12/02/19 at 08:07; Stop 12/02/19 at 08:08; Status DC Glycopyrrolate (Robinul) 1 mg STK-MED ONCE .ROUTE ; Start 12/02/19 at 08:08; Stop 12/02/19 at 08:08; Status DC Neostigmine [place] (Neostigmine Methylsulfate) 5 mg STK-MED ONCE .ROUTE ; Start 12/02/19 at 08:08; Stop 12/02/19 at 08:08; Status DC Rocuronium [place] (Zemuron) 50 mg STK-MED ONCE .ROUTE ; Start 12/02/19 at 08:08; Stop 12/02/19 at 08:08; Status DC Propofol 20 ml @ As Directed STK-MED ONCE IV ; Start 12/02/19 at 08:08; Stop 12/02/19 at 08:08; Status DC Lidocaine HCl (Lidocaine Pf 2% Vial) 5 ml STK-MED ONCE .ROUTE ; Start 12/02/19 at 08:08; Stop 12/02/19 at 08:08; Status DC Dexamethasone Sodium Phosphate (Decadron) 4 mg STK-MED ONCE .ROUTE ; Start 12/02/19 at 08:08; Stop 12/02/19 at 08:08; Status DC Ondansetron HCl (Zofran) 4 mg STK-MED ONCE .ROUTE ; Start 12/02/19 at 08:08; Stop 12/02/19 at 08:08; Status DC Isosulfan Blue (Lymphazurin Blue) 50 mg STK-MED ONCE SQ Last administered on 12/02/19at 10:04; Start 12/02/19 at 09:18; Stop 12/02/19 at 09:18; Status DC Fentanyl Citrate (Fentanyl 2ml Vial) 100 mcg STK-MED ONCE .ROUTE ; Start 12/02/19 at 10:10; Stop 12/02/19 at 10:11; Status DC Phenylephrine HCl (PHENYLEPHRINE in 0.9% NACL PF) 1 mg STK-MED ONCE IV ; Start 12/02/19 at 10:57; Stop 12/02/19 at 10:58; Status DC Sodium Chloride (Normal Saline Flush) 3 ml QSHIFT PRN IV AFTER MEDS AND BLOOD DRAWS; Start 12/02/19 at 12:30 Sodium Chloride 1,000 ml @ 80 mls/hr [id number] IV Last administered on 12/02/19at 15:15; Start 12/02/19 at 12:18 Acetaminophen/ Hydrocodone Bitart (Lortab 5/325) 1 tab PRN Q4HRS PRN PO MILD PAIN 1-3 Last administered on 12/02/19at 22:26; Start 12/02/19 at 12:30 Acetaminophen/ Hydrocodone Bitart (Lortab 5/325) 2 tab PRN Q4HRS PRN PO MODERATE PAIN, SEVERE PAIN Last administered on 12/03/19at 11:04; Start 12/02/19 at 12:30 Naloxone HCl (Narcan) 0.4 mg PRN Q2MIN PRN IV SEE INSTRUCTIONS; Start 12/02/19 at 12:30 Sodium Chloride 1,000 ml @ 25 mls/hr Q24H IV ; Start 12/02/19 at 12:18 Hydromorphone HCl (Dilaudid) 0.2 mg PRN Q1HR PRN IV PAIN Last administered on 12/03/19at 03:59; Start 12/02/19 at 12:30 Ondansetron HCl (Zofran) 4 mg PRN Q6HRS PRN IVP NAUESA, 1ST CHOICE Last administered on 12/03/19at 08:47; Start 12/02/19 at 12:30 Amlodipine Besylate (Norvasc) 5 mg DAILY PO Last administered on 12/03/19at 08:51; Start 12/02/19 at 13:00 Atorvastatin Calcium (Lipitor) 20 mg QHS PO Last administered on 12/02/19at 22:25; Start 12/02/19 at 21:00 Losartan Potassium (Cozaar) 25 mg DAILY PO Last administered on 12/03/19at 08:50; Start 12/02/19 at 13:00 Vitamin D (Vitamin D3) 1,000 unit DAILY PO Last administered on 12/03/19at 08:50; Start 12/02/19 at 13:00 Cyanocobalamin (Vitamin B-12) 2,500 mcg DAILY PO Last administered on 12/03/19at 08:51; Start 12/02/19 at 13:00 Pantoprazole Sodium (Protonix) 40 mg DAILYAC PO Last administered on 12/03/19at 05:10; Start 12/02/19 at 16:30 Fentanyl Citrate (Fentanyl 2ml Vial) 100 mcg STK-MED ONCE .ROUTE ; Start 12/02/19 at 12:50; Stop 12/02/19 at 12:50; Status DC Prochlorperazine Edisylate (Compazine) 10 mg STK-MED ONCE .ROUTE ; Start 12/02/19 at 12:50; Stop 12/02/19 at 12:51; Status DC Fentanyl Citrate (Fentanyl 2ml Vial) 100 mcg STK-MED ONCE .ROUTE ; Start 12/02/19 at 13:21; Stop 12/02/19 at 13:22; Status DC Active Scripts Active Reported Atorvastatin Calcium 20 Mg Tablet 20 Mg PO DAILY Losartan Potassium (Losartan Potassium) 25 Mg Tablet 25 Mg PO DAILY Amlodipine Besylate 5 Mg Tablet 5 Mg PO DAILY Omeprazole 40 Mg Capsule.dr 40 Mg PO DAILY Vitamin B12 (Cyanocobalamin (Vitamin B-12)) 2,500 Mcg Tablet 2,500 Mcg PO DAILY Vitamin D (Cholecalciferol (Vitamin D3)) 1,000 Unit Capsule 1 Cap PO DAILY Vitals/I & O Vital Sign - Last 24 Hours 12/02/19 12/02/19 12/02/19 12/02/19 14:00 14:00 14:10 14:25 Pulse 93 73 Resp 18 18 B/P (MAP) 120/65 (83) 150/58 (88) Pulse Ox 99 99 O2 Delivery Nasal Cannula Nasal Cannula Nasal Cannula Nasal Cannula O2 Flow Rate 2 2.0 2.0 2.0 12/02/19 12/02/19 12/02/19 12/02/19 14:40 15:25 15:47 15:55 Pulse 97 88 89 91 Resp 18 18 18 18 B/P (MAP) 112/52 (72) 119/62 (81) 104/56 (72) 128/69 (88) Pulse Ox 100 100 100 99 O2 Delivery Nasal Cannula Nasal Cannula Nasal Cannula Nasal Cannula O2 Flow Rate 2.0 2.0 2.0 12/02/19 12/02/19 12/02/19 12/02/19 16:55 18:59 19:00 19:59 Temp 99.1 99.1 Pulse 91 75 Resp 18 18 20 B/P (MAP) 140/77 (98) 149/66 (93) Pulse Ox 99 96 96 O2 Delivery Room Air Room Air Room Air Nasal Cannula O2 Flow Rate 2.0 12/02/19 12/02/19 12/02/19 12/02/19 20:00 22:26 23:00 23:26 Temp 97.7 97.7 Pulse 95 Resp 20 18 20 B/P (MAP) 155/62 (93) Pulse Ox 96 98 96 O2 Delivery Room Air Nasal Cannula Room Air Room Air O2 Flow Rate 2.0 12/02/19 12/03/19 12/03/19 12/03/19 23:54 00:24 03:00 03:59 Temp 97.7 97.7 Pulse 87 Resp 20 20 18 20 B/P (MAP) 167/76 (106) Pulse Ox 96 96 96 96 O2 Delivery Room Air Room Air Room Air 12/03/19 12/03/19 12/03/19 12/03/19 04:29 05:10 06:10 07:00 Temp 98.1 98.1 Pulse 94 Resp 20 20 20 18 B/P (MAP) 142/79 (100) Pulse Ox 96 96 96 94 O2 Delivery Room Air Room Air Room Air Room Air 12/03/19 12/03/19 12/03/19 12/03/19 07:45 08:50 08:51 11:00 Temp 98.0 98.0 Pulse 94 94 91 Resp 18 B/P (MAP) 142/79 149/79 163/69 (100) Pulse Ox 93 O2 Delivery Room Air Room Air 12/03/19 12/03/19 11:04 13:03 O2 Delivery Room Air Room Air Intake and Output 12/02/19 12/02/19 12/03/19 15:00 23:00 07:00 Intake Total 1565 ml 100 ml 600 ml Output Total 520 ml 550 ml 90 ml Balance 1045 ml -450 ml 510 ml LÓPEZ RIOS MD Dec 03, 2019 13:48
--- NOTE | 2019-12-03 13:52 | DISCH ---
DISCHARGE INSTRUCTIONS Condition on Discharge Condition on Discharge: Stable Activity After Discharge Activity Instructions for Disc: Activity as tolerated Diet after Discharge Diet after Discharge: Regular Wound Incision Care Wound/Incision Care: Other, see below (keep dressing clean and dry; home AUTUMN care, record output twice daily) Follow-Up Follow up with: Dr Rios in office in 1 week, call for appt [phone] LÓPEZ RIOS MD Dec 03, 2019 13:52
[2019-12-03 14:41] LABS: BASO # 0.1 x10^3/uL (0.0-0.2); BASO % 1 % (0-3); EOS # 0.1 x10^3/uL (0.0-0.7); EOS % 0 % (0-3); HEMATOCRIT 32.3 % (36.0-47.0); HEMOGLOBIN 10.8 g/dL (12.0-15.5); LYMPH % 19 % (24-48); MEAN CORPUSCULAR HEMOGLOBIN 30 pg (25-35); MEAN CORPUSCULAR HGB CONC 34 g/dL (31-37); MEAN CORPUSCULAR VOLUME 89 fL (79-100); MONO # 1.7 x10^3/uL (0.0-1.1); MONO % 11 % (0-9); NEUT % 69 % (31-73); PLATELET COUNT 223 x10^3/uL (140-400); RED BLOOD COUNT 3.62 x10^6/uL (3.50-5.40); RED CELL DISTRIBUTION WIDTH 14.1 % (11.5-14.5); WHITE BLOOD COUNT 15.9 x10^3/uL (4.0-11.0)
[2019-12-03 15:00] VITALS: BP 127/62
--- NOTE | 2019-12-03 16:34 | NUR ---
Pt. discharged to home with rx, verbalized understanding of discharge instructions. R chest drsg CDI, JPs x [address] Pt[address] demonstrated AUTUMN drain care for home and given cups for measuring and drain record.
--- NOTE | 2019-12-04 07:39 | PDOC3 ---
Discharge Summary Visit Information Date of Admission: Dec 02, 2019 Date of Discharge: Dec 03, 2019 Admitting Diagnosis: R DCIS with microinvasion Brief Hospital Course Allergies Allergies Coded Allergies Type Severity Reaction Last Updated Verified Sulfa (Sulfonamide Antibiotics) Adverse Reaction Intermediate NAUSEA & VOMITING 12/02/19 Yes acetaminophen Adverse Reaction Intermediate Nausea and Vomiting 12/02/19 Yes aspirin Adverse Reaction Intermediate NAUSEA & VOMITING 12/02/19 Yes codeine Adverse Reaction Intermediate NAUSEA AND VOMITING 12/02/19 Yes Vital Signs Vital Signs Date Time Temp Pulse Resp B/P (MAP) Pulse Ox O2 Delivery O2 Flow Rate FiO2 12/03/19 16:21 Room Air 12/03/19 15:00 98.2 79 18 127/62 (83) 95 98.2 Lab Results Laboratory Tests Test 12/03/19 14:35 White Blood Count 15.9 x10^3/uL (4.0-11.0) Red Blood Count 3.62 x10^6/uL (3.50-5.40) Hemoglobin 10.8 g/dL (12.0-15.5) Hematocrit 32.3 % (36.0-47.0) Mean Corpuscular Volume 89 fL (79-100) Mean Corpuscular Hemoglobin 30 pg (25-35) Mean Corpuscular Hemoglobin Concent 34 g/dL (31-37) Red Cell Distribution Width 14.1 % (11.5-14.5) Platelet Count 223 x10^3/uL (140-400) Neutrophils (%) (Auto) 69 % (31-73) Lymphocytes (%) (Auto) 19 % (24-48) Monocytes (%) (Auto) 11 % (0-9) Eosinophils (%) (Auto) 0 % (0-3) Basophils (%) (Auto) 1 % (0-3) Neutrophils # (Auto) 11.0 x10^3/uL (1.8-7.7) Lymphocytes # (Auto) 3.0 x10^3/uL (1.0-4.8) Monocytes # (Auto) 1.7 x10^3/uL (0.0-1.1) Eosinophils # (Auto) 0.1 x10^3/uL (0.0-0.7) Basophils # (Auto) 0.1 x10^3/uL (0.0-0.2) Laboratory Tests Test 12/03/19 14:35 White Blood Count 15.9 x10^3/uL (4.0-11.0) Red Blood Count 3.62 x10^6/uL (3.50-5.40) Hemoglobin 10.8 g/dL (12.0-15.5) Hematocrit 32.3 % (36.0-47.0) Mean Corpuscular Volume 89 fL (79-100) Mean Corpuscular Hemoglobin 30 pg (25-35) Mean Corpuscular Hemoglobin Concent 34 g/dL (31-37) Red Cell Distribution Width 14.1 % (11.5-14.5) Platelet Count 223 x10^3/uL (140-400) Neutrophils (%) (Auto) 69 % (31-73) Lymphocytes (%) (Auto) 19 % (24-48) Monocytes (%) (Auto) 11 % (0-9) Eosinophils (%) (Auto) 0 % (0-3) Basophils (%) (Auto) 1 % (0-3) Neutrophils # (Auto) 11.0 x10^3/uL (1.8-7.7) Lymphocytes # (Auto) 3.0 x10^3/uL (1.0-4.8) Monocytes # (Auto) 1.7 x10^3/uL (0.0-1.1) Eosinophils # (Auto) 0.1 x10^3/uL (0.0-0.7) Basophils # (Auto) 0.1 x10^3/uL (0.0-0.2) Brief Hospital Course Ms. Ambrocio is a 64 old female who presented with right breast DCIS with microinvasion. She elected for a complete mastectomy which was performed on 12/02/19. Surgery was uneventful and she was discharged on POD 1. Discharge Information Condition at Discharge: Stable (1 week) Follow Up: Weeks Disposition/Orders: D/C to Home Scheduled Amlodipine Besylate (Amlodipine Besylate) 5 Mg Tablet, 5 MG PO DAILY for HIGH BLOOD PRESSURE, (Reported) Entered as Reported by: SIMRAN FLAHERTY on 11/28/19 1433 Last Taken: Unknown Dose on 12/02/19 0530 Last Action: Continued on 12/02/19 1223 by LÓPEZ RIOS Atorvastatin Calcium (Atorvastatin Calcium) 20 Mg Tablet, 20 MG PO DAILY for FOR CHOLESTEROL, #30 Ref 0 (Reported) Entered as Reported by: SIMRAN FLAHERTY on 11/28/19 1433 Last Taken: Unknown Dose on 12/01/19 0800 Last Action: Continued on 12/02/19 1223 by LÓPEZ RIOS Cholecalciferol (Vitamin D3) (Vitamin D) 1,000 Unit Capsule, 1 CAP PO DAILY, #30 Ref 3 (Reported) Entered as Reported by: Yaneth Lo on 08/31/16 0856 Last Taken: Unknown Dose on 11/27/19 Last Action: Converted on 12/02/19 1223 by LÓPEZ RIOS Cyanocobalamin (Vitamin B-12) (Vitamin B12) 2,500 Mcg Tablet, 2,500 MCG PO DAILY, (Reported) Entered as Reported by: MILES ABDULLAHI on 09/16/16 1136 Last Taken: Unknown Dose on 11/27/19 Last Action: Converted on 12/02/19 1223 by LÓPEZ RIOS Losartan Potassium (Losartan Potassium ) 25 Mg Tablet, 25 MG PO DAILY for HYPERTENSION, (Reported) Entered as Reported by: SIMRAN FLAHERTY on 11/28/19 1433 Last Taken: Unknown Dose on 12/02/19 0530 Last Action: Continued on 12/02/19 1223 by LÓPEZ RIOS Omeprazole (Omeprazole) 40 Mg Capsule., 40 MG PO DAILY for REFLUX, (Reported) Entered as Reported by: SIMRAN FLAHERTY on 11/28/19 1432 Last Taken: Unknown Dose on 12/02/19 0530 Last Action: Converted on 12/02/19 1223 by LÓPEZ RIOS Discontinued Medications Omeprazole (Omeprazole) 20 Mg Capsule., 1 CAP PO DAILY, #30 Ref 5 (Reported) Discontinued Reason: Prescription changed Entered as Reported by: CLARA LOZANO on 05/10/18 0954 LÓPEZ RIOS MD Dec 04, 2019 07:39
--- NOTE | 2019-12-05 17:07 | PATHOLOGY ---
[facility] Accession Number: [id number] . 01 Material submitted: . PART A: lymph node - SENTINEL LYMPH NODE #1,FS PART B: breast - RIGHT BREAST SUTURE AT 12:00. Modifiers: right . 01 Pre-operative diagnosis: . 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 . 01 Clinical history: . Ductal carcinoma in situ . 02 Frozen section diagnosis: . FROZEN SECTION DIAGNOSIS: (Ruben Williamson M.D.) . FSA1. Tinnie lymph node #1, biopsy: - Lymphoid tissue with no evidence of carcinoma. . Findings relayed to Dr. Contreras at the time of the procedure. . . FROZEN SECTION GROSS DESCRIPTION: Part A is received fresh and is labeled "sentinel lymph node #1" and it consists of a 4.2 x 3.5 x 2.0 cm piece of pink-yellow, fibroadipose tissue. Dissection of the specimen reveals a single partially fatty replaced lymph node which measures 1.3 cm in greatest dimension. This partially fatty replaced lymph node is sectioned and public service representative sections are submitted in A1 for frozen section. Blocks A2 and A3 contained additional possible residual lymphoid tissue. (SKFelicita/yeyo; 12/02/2019) . Frozen section performed at [facility], [address] [place] [address], [place] [address]. MPK/LBQ . 02 Diagnosis: A. Lymph node, sentinel lymph node #1, excisional biopsy: - Negative for tumor. . B. Breast, right mastectomy: - Invasive ductal carcinoma, histologic grade I, is identified within wall of previous biopsy site, measuring up to 0.7 cm in greatest dimension, with associated low-grade ductal carcinoma in situ, cribriform type. - Margins of resection negative for tumor. - No lymphovascular tumor invasion identified. - Previous biopsy site changes with biopsy marker. - Proliferative fibrocystic changes with foci of florid ductal epithelial hyperplasia. - Focal fat necrosis of breast superior and medial to previous biopsy site, with fibrosis, chronic and granulomatous inflammation, and focal hemosiderin-laden macrophages. - Seborrheic keratosis, skin of breast. . (JPM:jorge luis; 12/04/2019) . . . Surgical Pathology Cancer Case Summary . INVASIVE CARCINOMA OF THE BREAST: Resection . . Procedure ___ Total mastectomy (including nipple-sparing and skin-sparing mastectomy) . Specimen Laterality ___ Right . + Tumor Site + ___ Upper outer quadrant . Tumor Size ___ Greatest dimension of largest invasive focus >1 mm (specify exact measurement) (millimeters): 7 mm . Histologic Type ___ Invasive carcinoma of no special type (invasive ductal carcinoma, not otherwise specified) . Histologic Grade ([employer] Histologic Score) . Glandular (Acinar)/Tubular Differentiation ___ Score 2 (10% to 75% of tumor area forming glandular/tubular structures) . Nuclear Pleomorphism ___ Score 1 (nuclei small with little increase in size in comparison with normal breast epithelial cells, regular outlines, uniform nuclear chromatin, little variation in size) . Mitotic Rate ___ Score 1 . Overall Grade ___ Grade 1 (scores of 3, 4, or 5) . + Tumor Focality + ___ Single focus of invasive carcinoma . . Ductal Carcinoma In Situ (DCIS) ___ Present + ___ Positive for extensive intraductal component (EIC) . . + Architectural Patterns + ___ Cribriform . + Nuclear Grade + ___ Grade I (low) . + Necrosis + ___ Present, focal (small foci or single cell necrosis) . + Lobular Carcinoma In Situ (LCIS) + ___ No LCIS in specimen . . Tumor Extension Skin ___ Skin is present and uninvolved . . Nipple ___ DCIS does not involve the nipple epidermis . . Skeletal Muscle ___ No skeletal muscle is present . . . Margins . Invasive Carcinoma Margins ___ Uninvolved by invasive carcinoma Distance from closest margin (millimeters): ___ Specify 24 mm . . + Specify closest margin(s): Posterior deep margin . . DCIS Margins ___ Uninvolved by DCIS . . Distance from closest margin (millimeters): ___ Specify 24 mm . Specify closest margin(s) (required only if <2mm): Posterior deep margin . . Regional Lymph Nodes ___ Uninvolved by tumor cells Total Number of Lymph Nodes Examined: 1 Number of Tinnie Nodes Examined: 1 . + Lymphovascular Invasion + ___ Not identified . + Dermal Lymphovascular Invasion + ___ Not identified . . Pathologic Stage Classification (pTNM, AJCC 8th Edition) . Primary Tumor (pT) ___ pT1b:Tumor >5 mm but =10 mm in greatest dimension . . . . Regional Lymph Nodes (pN) (choose a category based on lymph nodes received with the specimen; immunohistochemistry and/or molecular studies are not required) . ___ pN0:No regional lymph node metastasis identified or ITCs only# . . + Microcalcifications + ___ Present in DCIS + ___ Present in invasive carcinoma + ___ Present in non-neoplastic tissue . . + Clinical History + ___ Other (specify): Calcifications . + Radiologic Finding + ___ Calcifications . (JPM:mml; 12/05/2019) [facility] 12/05/2019 1134 Local . 02 Comment: The sentinel lymph node is examined at multiple levels. Immunoperoxidase stains for AE1/AE3 is obtained on the 3 blocks of the sentinel lymph node and yield the following results: . AE1/AE3 (A1): Negative for tumor. AE1/AE3 (A2): Negative for tumor. AE1/AE3 (A3): Negative for tumor. . The sentinel lymph node shows no morphologic or immunophenotypic evidence of metastatic carcinoma. . Sections of the right mastectomy reveals a focus of invasive ductal carcinoma, histologic grade I, within the wall of the previous biopsy site measuring approximately 0.7 cm in greatest dimension. There is an associated extensive component of low-grade ductal carcinoma in situ, cribriform type. The margins of excision are negative for tumor. . (JPM:credentialing analyst; 12/04/2019) . The immunoperoxidase stains are for AE1/AE3 on A1, A2, and A3. . 02 Electronically signed: . Phillip Marks MD, Pathologist NPI- [id number] . 01 Gross description: . A. SEE FROZEN SECTION GROSS DESCRIPTION. . B. The specimen is received in formalin, labeled "Hue Ambrocio, right breast, suture at 12:00". Received is a 2505 g mastectomy specimen oriented with a suture designating the 12:00 position. The specimen measures 33.6 cm from medial to lateral, 29.2 cm from superior to inferior, and 5.9 cm from anterior to posterior. On the anterior aspect, there is an ellipse of skin present measuring 26.5 x 15.3 cm with a centrally located everted nipple and areolar complex, measuring 1.2 x 0.8 and 4.9 x 4.6 cm, respectively. The epidermal surface displays several well-circumscribed, irregular in contour and pink-butterfield to light butterfield lesions ranging in size from 0.3 x 0.3 to 0.4 x 0.3 cm. There is a moderate amount of residual blue dye on the epidermal surface, encompassing the lateral half of the areolar complex and extending lateral. The specimen is inked as follows: Superior/anterior-blue, inferior/anterior-green, posterior-black. The specimen is serially sectioned and placed into formalin for overnight fixation prior to further sectioning. (CAA; 12/02/2019) . After overnight fixation, further sectioning through the specimen reveals a previous biopsy site, with a metallic clip present, measuring 0.9 x 0.7 x 0.5 cm in greatest dimensions, which is 2.4 cm from the closest margin (posterior). This site is located along the junction between the upper outer and lower outer quadrants. Immediately inferior to the previous biopsy site, there is a focus of stellate fibrous tissue measuring 2.5 x 2.0 x 1.0 cm, which is 1.2 cm from the closest margin (posterior). This stellate fibrous area is located in the lower outer quadrant. 7.5 cm superior/medial to the previous biopsy site, there is a cystic-structure identified measuring 1.0 cm in maximum dimensions filled with light butterfield friable material. This cystic area is located 1.8 posterior and superior to the areolar complex. Surrounding this cystic area, there are comedo-like structures. Immediately posterior to this cystic area, there is stellate white fibrous tissue measuring 2.0 x 2.0 x 0.9 cm, which is 2.4 cm from the closest margin (posterior). Sectioning through this fibrous tissue reveals slightly cystic-appearing cut surfaces. Sectioning through the remainder of the specimen reveals bright yellow fibrofatty cut surfaces, with the fibrous tissue encompassing approximately 5% of the specimen. The specimen is submitted public service representative as follows: . B1 perpendicular section through nipple B2 public service representative sections of skin lesions B3-B7 entire previous biopsy site submitted from lateral to medial aspects B8-B11 public service representative sections of stellate fibrous tissue immediately inferior to previous biopsy site B12-B16 entire cystic area superior/medial to the previous biopsy site, submitted from lateral to medial aspects B17-B18 public service representative sections of stellate fibrous tissue immediately posterior to cystic area B19 upper outer quadrant B20 lower outer quadrant B21 lower inner quadrant B22 upper inner quadrant. (CAA; 12/03/2019) QAC/LBQ 12/04/2019 1711 Local . 02 Microscopic: . . . 02 Pathologist provided ICD-10: C50.911, N60.11, N60.31, N64.1, L82.1 . 02 CPT . 296058, 080831, 974457, [id number] Specimen Comment: A courtesy copy of this report has been sent to [phone], [phone] Specimen Comment: [phone] Specimen Comment: Report sent to / DR YLNCH Performed at: 01 [facility] [address] [facility] [address], [place] [id number] MD Samm Garcia MD Phone: [phone] Performed at: 02 [facility] [address] [place], [place] [id number] MD Phillip Marks MD Phone: [phone]
== END 2019-12-03 16:35 | disposition home or self-care (01) ==
LOC: NM 07:27 → 4 NORTH 13:17
PROVIDERS: ADMIT Surgery; ATTEND Surgery
DX: C50.911 Malignant neoplasm of unspecified site of right female breast (principal)
CPT/HCPCS: 19303; 36415; 38525; 38792; 85025; 96374; 96375; 96376; A7015; A9520; G0378; G0379; J0696; J0780; J1100; J1170; J2001; J2250; J2370; J2405; J2704; J2710; J3010; J3490; J7120; Q9968; 88307; 88331; 88342

== ENCOUNTER → 2020-01-08 | Outpatient (CLI) | payer MEDICARE ==
[~2020-01-08] MED LIST changes: -IV RINGERS,LACTATED 1000ML 1,000 ML IV SCH; -LIDOCAINE 1% PF 2 ML VIAL. ID PRN; -ONDANSETRON PF 4 MG/2 ML VIAL. IV PRN; -PROCHLORPERAZINE 10 MG/2 ML VIAL. IV PRN; -fentaNYL PF VIAL 100 MCG/2 ML VIAL IV PRN
--- NOTE | 2020-01-08 07:54 | RAD ---
Right upper extremity venous duplex study 01/08/2020 7:51 AM Clinical History: Right upper extremity edema Technique: Using a combination of real time ultrasound imaging and color-flow and pulse Doppler imaging techniques, including spectral analysis, graded compression and augmentation, duplex evaluation of the deep venous system of the right lower extremity was performed. Multiple images were obtained. Findings: There is no sonographic evidence of deep venous thrombosis involving the visualized deep venous structures of the right upper extremity Impression: No evidence of deep venous thrombosis involving the right upper extremity Electronically signed by: Adal Magallon MD (01/08/2020 7:51 AM) [id number]
== END ==
LOC: US 06:57
PROVIDERS: ATTEND Surgery
DX: M79.89 Other specified soft tissue disorders (principal)
CPT/HCPCS: 93971

== ENCOUNTER 2020-01-15 09:59 | Outpatient (CLI) | payer MEDICARE ==
[~2020-01-15] VITALS: Ht 157.5 cm; Wt 101.2 kg
[2020-01-15] VITALS (14 sets, daily range): BP systolic 156–218; BP diastolic 72–93
[2020-01-15] MEDS ORDERED: ANAS1TAB47 PO (10:29)
[2020-01-15] MEDS ORDERED: LIDOCAINE WITH 8.4% SOD BICARB 3 ML DISP.SYRIN. ONE (10:30)
[2020-01-15] MEDS ORDERED: MIDAZOLAM HCL/PF 2 MG/2 ML VIAL. ONE (10:37)
[2020-01-15] MEDS ORDERED: fentaNYL PF VIAL 100 MCG/2 ML VIAL ONE (10:37)
[2020-01-15 10:38] LABS: BASO # 0.1 x10^3/uL (0.0-0.2); BASO % 1 % (0-3); EOS # 0.1 x10^3/uL (0.0-0.7); EOS % 1 % (0-3); HEMATOCRIT 40.3 % (36.0-47.0); HEMOGLOBIN 13.2 g/dL (12.0-15.5); LYMPH # 2.5 x10^3/uL (1.0-4.8); LYMPH % 30 % (24-48); MEAN CORPUSCULAR HEMOGLOBIN 30 pg (25-35); MEAN CORPUSCULAR HGB CONC 33 g/dL (31-37); MEAN CORPUSCULAR VOLUME 91 fL (79-100); MONO # 0.8 x10^3/uL (0.0-1.1); MONO % 10 % (0-9); NEUT # 4.9 x10^3/uL (1.8-7.7); NEUT % 59 % (31-73); PLATELET COUNT 246 x10^3/uL (140-400); RED BLOOD COUNT 4.44 x10^6/uL (3.50-5.40); WHITE BLOOD COUNT 8.4 x10^3/uL (4.0-11.0)
[2020-01-15] MEDS ORDERED: fentaNYL PF VIAL 100 MCG/2 ML VIAL IV ONE (10:45)
[2020-01-15] MEDS ORDERED: MIDAZOLAM HCL/PF 2 MG/2 ML VIAL. IV ONE (10:45)
[2020-01-15 10:58] LABS: PROTHROMBIN TIME PATIENT 12.4 SEC (11.7-14.0)
[2020-01-15] MEDS: LIDOCAINE WITH 8.4% SOD BICARB 3 ML DISP.SYRIN. IJ ONE (11:04)
--- NOTE | 2020-01-15 12:40 | NUR ---
Discharge Note: ELENA FLOWERS Discharge instructions and discharge home medications reviewed with Patient and a copy given. All questions have been answered and understanding verbalized. Drain site remains dry and intact, bulb drain in place, dressing supplies given. The following instructions and handouts were given: bulb drain, sedation Discontinued lines and drains: Peripheral IV intact. Patient discharged to Home or Self Care with spouse via Wheelchair. CHRISSY RN Addendum: 01/15/20 at 1258 by MATT GONZALEZ RN Amended: Links added.
--- NOTE | 2020-01-15 17:32 | RAD ---
Ultrasound-guided drainage, right chest wall seroma following expected 01/15/2020 INDICATION: Persistent right chest wall seroma following mastectomy 01/15/2020 3:27 PM Discussion: The procedure was explained in its entirety to the patient or the patients designated patient financial representative by a member of the treatment team, including a discussion of the risks, benefits and commonly accepted alternatives to the procedure, as well as the expected consequences of no therapy whatsoever All elements of maximal sterile barrier technique including the use of a cap, mask, sterile gown, sterile gloves, large sterile sheet, appropriate hand hygiene, and 2% chlorhexidine for cutaneous antisepsis (or acceptable alternative antiseptic per current guidelines) were followed for this procedure. Ultrasound evaluation demonstrates a fluid pocket in the left anterior chest extending to the axilla. Reference ultrasound images were saved the medical record. 1% lidocaine was administered for local anesthesia. Under direct ultrasound guidance a 5 Honduran sheath needle was advanced into the fluid pocket. Serous fluid was aspirated. A guidewire was advanced into the collection, over which, following dilatation a 10 [place]uran pigtail catheter was placed. The stroma was completely evacuated by ultrasound. The catheter was connected to bulb suction drainage. The procedures performed under conscious sedation including continuous cardiopulmonary monitoring via dedicated sedation nurse. [id number] sedation time: 20 minutes Impression: Ultrasound-guided placement of a 10 [place]uran drain into a left chest wall seroma
== END 2020-01-15 12:40 | disposition home or self-care (01) ==
LOC: INTRAD 09:59
PROVIDERS: ATTEND Surgery
DX: M96.843 Postprocedural seroma of a musculoskeletal structure following other procedure (principal); Z79.01 Long term (current) use of anticoagulants
CPT/HCPCS: 10030; 36415; 85025; 85610; 99152; A4215; C1729; C1892; C1894; J2250; J3010; J3490

== ENCOUNTER 2020-06-18 15:28 | Observation (INO) | payer MEDICARE ==
[~2020-06-18] VITALS: Ht 157.5 cm; Wt 102.4 kg
[~2020-06-18 15:28] MED LIST changes: +ANAS1TAB47 PO
[2020-06-18 15:59] LABS: BASO # 0.1 x10^3/uL (0.0-0.2); BASO % 1 % (0-3); EOS # 0.1 x10^3/uL (0.0-0.7); EOS % 1 % (0-3); HEMOGLOBIN 13.6 g/dL (12.0-15.5); LYMPH # 2.8 x10^3/uL (1.0-4.8); LYMPH % 24 % (24-48); MEAN CORPUSCULAR HEMOGLOBIN 29 pg (25-35); MEAN CORPUSCULAR HGB CONC 33 g/dL (31-37); MEAN CORPUSCULAR VOLUME 88 fL (79-100); MONO # 0.9 x10^3/uL (0.0-1.1); MONO % 8 % (0-9); NEUT # 7.6 x10^3/uL (1.8-7.7); NEUT % 65 % (31-73); PLATELET COUNT 273 x10^3/uL (140-400); RED BLOOD COUNT 4.63 x10^6/uL (3.50-5.40); RED CELL DISTRIBUTION WIDTH 13.9 % (11.5-14.5); WHITE BLOOD COUNT 11.6 x10^3/uL (4.0-11.0)
--- NOTE | 2020-06-18 16:06 | EKG ---
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
[2020-06-18 16:08] LABS: CALCIUM 9.6 mg/dL (8.5-10.1); CREATININE 0.7 mg/dL (0.6-1.0); GFR 83.7; POTASSIUM 4.2 mmol/L (3.5-5.1)
--- NOTE | 2020-06-18 16:24 | RAD ---
EXAM: AP View of the chest DATE: 06/18/2020 3:55 PM INDICATION: PUI,CHEST PAIN COMPARISON: 04/17/2018 FINDINGS/ IMPRESSION: The heart is not enlarged. Mild interstitial prominence left greater than right lung base. Patchy opacities left lung base. No pleural effusion or pneumothorax. Electronically signed by: Silvestre Whitaker MD (06/18/2020 4:21 PM) LIVIER
[2020-06-18] MEDS ORDERED: KETOROLAC 30 MG/ML VIAL. IVP ONE (17:15)
--- NOTE | 2020-06-18 17:41 | PHYS DOC ---
Past Medical History Past Medical History: Hypertension (KIM MELTON MD) Past Surgical History: Cancer Surgery, Cholecystectomy, Hysterectomy Additional Past Surgical Histo: bilateral mastectomy, shoulder dislocation (KIM MELTON MD) Smoking Status: Never Smoker Alcohol Use: None (KIM MELTON MD) General Adult EDM: Chief Complaint: CHEST PAIN HPI: HPI: Patient is a 64 year old female who presents with left-sided chest pain and shortness of breath. Patient states that she woke up suddenly with this pain at 6 AM this morning and it has been constant since then. It has not gotten worse or better. She states it feels like a sharp pain that is putting a lot of pressure on her chest. The pain is worse if she takes a deep breath. Nothing else seems to make it better or worse. She has significant shortness of breath with it. (KIM MELTON MD) Review of Systems: Review of Systems: General: Denies fever, chills, sweats, fatigue Eyes: Denies drainage, blurred vision, eye redness HENT: Denies rhinorrhea, sore throat, earache Respiratory: Denies cough, wheezing. Reports shortness of breath Cardiac: Denies edema, palpitations. Reports chest pain GI: Denies abdominal pain, Nausea, vomiting MSK: Denies back pain, neck pain Skin: Denies rash, jaundice Neuro: Denies headache, dizziness Psychiatric: Denies SI/HI (KIM MELTON MD) Heart Score: Risk Factors: Risk Factors: DM, Current or recent (<one month) smoker, HTN, HLP, family history of CAD, obesity. Risk Scores: Score 0 - 3: 2.5% MACE over next 6 weeks - Discharge Home Score 4 - 6: 20.3% MACE over next 6 weeks - Admit for Clinical Observation Score 7 - 10: 72.7% MACE over next 6 weeks - Early Invasive Strategies (KIM MELTON MD) HEART Score for Chest Pain: HEART Score for Chest Pain Response (Comments) Value History Moderately Suspicious 1 ECG Nonspecific Repolarizatio 1 Age > 65 2 Risk Factors 1 or 2 Risk Factors 1 Troponin < Normal Limit 0 Total 5 Current Medications: Current Medications Medications (Trade) Dose Ordered Sig/Lydia Start Time Stop Time Status Last Admin Dose Admin Ketorolac Tromethamine (Toradol 30mg Vial) 30 mg 1X ONCE 06/18/20 17:15 06/18/20 17:16 DC 06/18/20 17:20 30 MG (KIM MELTON MD) Allergies: Allergies: Allergies Coded Allergies Type Severity Reaction Last Updated Verified Sulfa (Sulfonamide Antibiotics) Adverse Reaction Intermediate NAUSEA & VOMITING 12/02/19 Yes acetaminophen Adverse Reaction Intermediate Nausea and Vomiting 12/02/19 Yes aspirin Adverse Reaction Intermediate NAUSEA & VOMITING 12/02/19 Yes codeine Adverse Reaction Intermediate NAUSEA AND VOMITING 12/02/19 Yes (KIM MELTON MD) Physical Exam: PE: General: Awake, alert, NAD. Well Nourished, well hydrated. Cooperative HEENT: Atraumatic, EOMI, PERRL, airway patent, moist oral mucosa Neck: Supple, trachea midline Respiratory: CTA bilaterally, normal effort, no wheezing/crackles CV: Tachycardia, no murmur, cap refill <2 GI: Soft, nondistended, nontender, no masses MSK: No obvious deformities Skin: Warm, dry, intact Neuro: A&O x3, speech NL, sensory and motor grossly intact, no focal deficits Psych: Normal affect, normal mood, not suicidal or homicidal (KIM MELTON MD) Current Patient Data: Labs: Laboratory Tests Test 06/18/20 15:40 White Blood Count 11.6 x10^3/uL (4.0-11.0) H Red Blood Count 4.63 x10^6/uL (3.50-5.40) Hemoglobin 13.6 g/dL (12.0-15.5) Hematocrit 41.0 % (36.0-47.0) Mean Corpuscular Volume 88 fL (79-100) Mean Corpuscular Hemoglobin 29 pg (25-35) Mean Corpuscular Hemoglobin Concent 33 g/dL (31-37) Red Cell Distribution Width 13.9 % (11.5-14.5) Platelet Count 273 x10^3/uL (140-400) Neutrophils (%) (Auto) 65 % (31-73) Lymphocytes (%) (Auto) 24 % (24-48) Monocytes (%) (Auto) 8 % (0-9) Eosinophils (%) (Auto) 1 % (0-3) Basophils (%) (Auto) 1 % (0-3) Neutrophils # (Auto) 7.6 x10^3/uL (1.8-7.7) Lymphocytes # (Auto) 2.8 x10^3/uL (1.0-4.8) Monocytes # (Auto) 0.9 x10^3/uL (0.0-1.1) Eosinophils # (Auto) 0.1 x10^3/uL (0.0-0.7) Basophils # (Auto) 0.1 x10^3/uL (0.0-0.2) D-Dimer (Kayla) 0.53 ug/mlFEU (0.00-0.50) H Sodium Level 141 mmol/L (136-145) Potassium Level 4.2 mmol/L (3.5-5.1) Chloride Level 104 mmol/L (98-107) Carbon Dioxide Level 30 mmol/L (21-32) Anion Gap 7 (6-14) Blood Urea Nitrogen 13 mg/dL (7-20) Creatinine 0.7 mg/dL (0.6-1.0) Estimated GFR (Cockcroft-Gault) 83.7 Glucose Level 100 mg/dL (70-99) H Calcium Level 9.6 mg/dL (8.5-10.1) Troponin I Quantitative < 0.017 ng/mL (0.000-0.055) Laboratory Tests 06/18/20 15:40 Laboratory Tests 06/18/20 15:40 Vital Signs: Vital Signs Date Time Temp Pulse Resp B/P (MAP) Pulse Ox O2 Delivery O2 Flow Rate FiO2 06/18/20 16:17 107 18 139/67 (91) 99 Room Air (KIM MELTON MD) EKG: EKG: [] (KIM MELTON MD) Radiology/Procedures: Radiology/Procedures: [] (KIM MELTON MD) Radiology/Procedures: [facility] [address] [place] [address] IMAGING REPORT Signed PATIENT: ELENA FLOWERSCOUNT: [id number] : 1955 LOCATION: ER AGE: 64 SEX: F EXAM STATUS: REG ER ORD. PHYSICIAN: KIM MELTON MD REASON: sob, tachycardia PROCEDURE: CT ANGIOGRAPHY CHEST Exam: CT of chest with contrast INDICATION: Shortness of breath, tachycardia TECHNIQUE: Sequential axial images through the chest obtained following the administration of 100 mL of Omni 350 IV contrast. Sagittal and coronal reformatted images were reconstructed from the axial data and reviewed. 3-D reformatted images were reconstructed from the axial data and reviewed. Comparisons: Chest x-ray same day FINDINGS: Visualized portions of the thyroid are unremarkable. No enlarged mediastinal lymph nodes. Heart size is normal. No pericardial effusion. Thoracic aorta has a normal course and caliber. Pulmonary artery is not enlarged. No pulmonary embolus identified within the main, lobar or segmental pulmonary arteries. Airways are patent. No consolidation or pneumothorax. Strandy opacities at dependent portion lungs likely representing atelectasis. No suspicious lung nodules are identified. No pleural effusion or thickening. Visualized upper abdomen is unremarkable. No suspicious osseous lesions or acute fractures. IMPRESSION: No pulmonary embolus identified within the main, lobar or segmental pulmonary arteries. Exposure: One or more of the following in the visualized dose reduction techniques were utilized for this examination: 1. Automated exposure control 2. Adjustment of the MA and/or KV according to patient size 3. Use of iterative of reconstructive technique Electronically signed by: Grant Robison MD (06/18/2020 6:51 PM) [id number] DICTATED and SIGNED BY: GRANT ROBISON MD DATE: 06/18/201850 (DILCIA OLVERA DO) Course & Med Decision Making: Course & Med Decision Making Pertinent Labs and Imaging studies reviewed. (See chart for details) Patient is 64-year-old female who presents to the emergency room with sharp chest pain. Patient is tachycardic upon arrival. She was not ill prior to this making infection less likely though it does not rule it out. Cardiac work-up was ordered and EKG is normal. Troponin is negative. CT angios be done to rule out a pulmonary embolism. Patient will be given Toradol for pain. Patient discussed with Dr. Olvera the oncoming physician who will assume care. (KIM MELTON MD) Course & Med Decision Making Patient is a a 64-year-old female who was evaluated in the ER due to chest pain. Work-up did not find any problem at this time. Due to her risk factors patient will be admitted to hospital for further evaluation and treatment. Discussed with Dr. Rico who agreed to admit the patient. (DILCIA OLVERA DO) Dragon Disclaimer: Dragon Disclaimer: This electronic medical record was generated, in whole or in part, using a voice recognition dictation system. (KIM MELTON MD) Departure Departure Impression: Primary Impression: Chest pain Disposition: 09 ADMITTED INPATIENT Admitting Physician: ИРИНА (dr. Villafuerte) (DILCIA OLVERA DO) Condition: STABLE Referrals: EVENS LYNCH MD (PCP) Justicifation of Admission Dx: Justifications for Admission: Justification of Admission Dx: Yes (KIM MELTON MD) Justification of Admission Dx: N/A (DILCIA OLVERA DO) KIM MELTON MD Jun 18, 2020 17:41 DILCIA OLVERA DO Jun 18, 2020 19:00
[2020-06-18] MEDS ORDERED: IOHEXOL 350 MG/ML 100 ML VIAL. IV ONE (18:15)
[2020-06-18 18:48] LABS: ALBUMIN 3.2 g/dL (3.4-5.0); DIRECT BILIRUBIN 0.1 mg/dL (0.0-0.2); TOTAL BILIRUBIN 0.3 mg/dL (0.2-1.0); TOTAL PROTEIN 7.7 g/dL (6.4-8.2)
--- NOTE | 2020-06-18 18:54 | RAD ---
Exam: CT of chest with contrast INDICATION: Shortness of breath, tachycardia TECHNIQUE: Sequential axial images through the chest obtained following the administration of 100 mL of Omni 350 IV contrast. Sagittal and coronal reformatted images were reconstructed from the axial data and reviewed. 3-D reformatted images were reconstructed from the axial data and reviewed. Comparisons: Chest x-ray same day FINDINGS: Visualized portions of the thyroid are unremarkable. No enlarged mediastinal lymph nodes. Heart size is normal. No pericardial effusion. Thoracic aorta has a normal course and caliber. Pulmonary artery is not enlarged. No pulmonary embolus identified within the main, lobar or segmental pulmonary arteries. Airways are patent. No consolidation or pneumothorax. Strandy opacities at dependent portion lungs likely representing atelectasis. No suspicious lung nodules are identified. No pleural effusion or thickening. Visualized upper abdomen is unremarkable. No suspicious osseous lesions or acute fractures. IMPRESSION: No pulmonary embolus identified within the main, lobar or segmental pulmonary arteries. Exposure: One or more of the following in the visualized dose reduction techniques were utilized for this examination: 1. Automated exposure control 2. Adjustment of the MA and/or KV according to patient size 3. Use of iterative of reconstructive technique Electronically signed by: Grant Lew MD (06/18/2020 6:51 PM) [id number]
[2020-06-18] MEDS ORDERED: ONDANSETRON PF 4 MG/2 ML VIAL. IV PRN (19:30)
--- NOTE | 2020-06-18 20:12 | HP ---
ADMIT DATE: 06/18/2020 CHIEF COMPLAINT: Chest pain. HISTORY OF PRESENT ILLNESS: The patient is a pleasant 64-year-old female who presents with chest pain. She has some slight shortness of breath that has been occurring for a couple of days, described as irritating and pressure like. It has got worse this morning about 6:00. It has been constant since then. She took some [id number] meds that did not work. I have discussed the case with the ER physician. We are going to admit the patient and consult Cardiology. PAST MEDICAL HISTORY: Breast cancer, bilateral mastectomies, cholecystectomy, hysterectomy, hypertension, shoulder dislocation. ALLERGIES: SULFA, TYLENOL, ASPIRIN, CODEINE. FAMILY HISTORY: Coronary artery disease and breast cancer. SOCIAL HISTORY: She does not drink, smoke or take drugs. MEDICATIONS: Reviewed, please refer to the MRAD. REVIEW OF SYSTEMS: GENERAL: No history of weight change, weakness or fevers. SKIN: No bruising, hair changes or rashes. EYES: No blurred, double or loss of vision. NOSE AND THROAT: No history of nosebleeds, hoarseness or sore throat. HEART: She complains of chest pain. LUNGS: Denies cough, hemoptysis, wheezing or shortness of breath. GASTROINTESTINAL: Denies changes in appetite, nausea, vomiting, diarrhea or constipation. GENITOURINARY: No history of frequency, urgency, hesitancy or nocturia. NEUROLOGIC: Denies history of numbness, tingling, tremor or weakness. PSYCHIATRIC: No history of panic, anxiety or depression. ENDOCRINE: No history of heat or cold intolerance, polyuria or polydipsia. EXTREMITIES: Denies muscle weakness, joint pain, pain on walking or stiffness. PHYSICAL EXAMINATION: VITALS: Within normal limits and are stable. GENERAL: She is a little anxious and complained of chest pain. HEENT: Normal cephalic atraumatic, external auditory canals are patent EYES: Extraocular muscles are intact, pupils are equally round and reactive to light and accommodation MUSCULOSKELETAL: Well developed, well nourished, good range of motion ENDOCRINE: No thyromegaly was palpated LYMPHATICS: No cervical chain or axillary nodes were noted HEMATOPOIETIC: No bruising NECK: Supple, no JVD, no thyromegaly was noted. LUNGS: Clear to auscultation in all lung perez without rhonchi or wheezing. HEART: RRR, S1, S2 present. Peripheral pulses intact, no obvious murmurs were noted. ABDOMEN: Soft, nontender. Positive bowel sounds no organomegaly, normal bowel sounds. EXTREMITIES: Without any cyanosis, clubbing, or edema. Pedal pulses intact, Homans sign is negative. NEUROLOGIC: Normal speech, normal tone. A & O x3, moves all extremities, no obvious focal deficits. PSYCHIATRIC: Normal affect, normal mood. Stable. SKIN: No ulcerations or rashes, good skin turgor, no jaundice. VASCULAR: Good capillary refill, neurovascular bundle appears to be intact. LABORATORY DATA: Troponin is 0. Hematology is normal. ASSESSMENT AND PLAN: Chest pain, rule out coronary artery disease. The patient will be admitted. We will consult Cardiology. Home meds, DVT prophylaxis. Full code. Serial enzymes, serial EKGs, cardiac monitoring. TREVON PEREZ DO DR: SHANNEN/brandon JOB#: [id number] / [id number]
[2020-06-18] MEDS ORDERED: GABA600T7 PO (21:49)
[2020-06-18 23:00] VITALS: BP 180/84
[2020-06-18] MEDS ORDERED: cloNIDine HCL 0.2 MG TABLET PO PRN (23:00)
[2020-06-18] MEDS ORDERED: ATOR20TA58 PO (23:15)
[2020-06-18] MEDS: traMADol 50 MG TABLET PO PRN (23:22)
[2020-06-19] MEDS ORDERED: GABAPENTIN 100 MG CAPSULE. PO PRN
[2020-06-19 03:00] VITALS: BP 152/60
[2020-06-19 03:26] LABS: CHOLESTEROL/HDL RATIO 3.5
[2020-06-19 07:00] VITALS: BP 132/61
[2020-06-19] MEDS ORDERED: PANTOPRAZOLE 40 MG TABLET.DR. PO SCH (07:30)
[2020-06-19 08:47] VITALS: BP 132/61
[2020-06-19] MEDS: traMADol 50 MG TABLET PO PRN (08:47)
[2020-06-19] MEDS ORDERED: CHOLECALCIFEROL (VITAMIN D3) 1,000 UNIT TABLET PO SCH (09:00)
[2020-06-19] MEDS ORDERED: amLODIPine BESYLATE 5 MG TABLET PO SCH (09:00)
[2020-06-19] MEDS ORDERED: LOSARTAN POTASSIUM 25 MG TABLET. PO SCH (09:00)
--- NOTE | 2020-06-19 10:57 | DS ---
DATE OF DISCHARGE: 06/19/2020 ADMISSION DIAGNOSIS: Chest pain. DISCHARGE DIAGNOSIS: Atypical chest pain. CONSULTS: Cardiology. PROCEDURES: None. HOSPITAL COURSE: The patient is a pleasant middle-aged female, who presented with chest pain. She was admitted. We checked serial enzymes, serial EKGs. We consulted Cardiology. Today, I saw her and examined her. She is at her baseline. Heart tones are normal. Lungs are clear. She is doing well. She wants to go home. We plan to discharge. DISPOSITION: Home. ACTIVITY: As tolerated. DIET: Low sodium. MEDICATIONS: Please see the MRAD. TOTAL TIME: 32 minutes. TREVON PEREZ DO DR: SHANNEN/brandon JOB#: [id number] / [id number]
--- NOTE | 2020-06-19 11:11 | NUR ---
SS following for discharge planning. SS reviewed pt chart and discussed with pt RN. Pt is from home with spouse. Pt admitted for observation for chest pain. Six minute walk ordered to assess oxygen needs. Pt passed six minute walk and no oxygen needed. Discharge order on the chart for home with self care.
--- NOTE | 2020-06-19 14:04 | NUR ---
Discharge Note: ELENA FLOWERS Discharge instructions and discharge home medications reviewed with Patient and a copy given. All questions have been answered and understanding verbalized. The following instructions and handouts were given: CP, Cardiac diet Discontinued lines and drains: Peripheral IV intact. Patient discharged to Home or Self Care with Spouse via Amb[facility]
--- NOTE | 2020-06-20 00:12 | CONS ---
DATE OF CONSULTATION: 06/19/2020 REASON FOR CONSULTATION: Chest pain. HISTORY OF PRESENT ILLNESS: The patient is a pleasant 64-year-old woman with past medical history as noted below, who presents with left-sided atypical, noncardiac chest pain. She has a prior history of ductal carcinoma of the breast and has had prior mastectomies. In this setting, she reports left-sided sharp discomfort that is constant in nature without any significant alleviating or aggravating factors. No other significant cardiac symptoms noted. Upon arrival to the ER, she was noted to have pressures and was mildly tachycardic. She underwent diagnostic evaluation with a CT angiogram of the chest, which did not reveal any evidence of pulmonary embolus and she was admitted for observation. In speaking with the patient today, she feels better. Denies any other acute issues. PAST MEDICAL HISTORY: 1. Hypertension. 2. Dyslipidemia. 3. Obesity. 4. Chronic dyspnea on exertion. SOCIAL HISTORY: The patient denies any alcohol, tobacco or illicit drug use. FAMILY HISTORY: Noncontributory. ALLERGIES: SULFA, TYLENOL, ASPIRIN AND CODEINE. REVIEW OF SYSTEMS: Negative unless otherwise mentioned above in HPI. PHYSICAL EXAMINATION: VITAL SIGNS: Afebrile, 81, 20, 132/61, 100% on 3 liters nasal cannula. GENERAL: She was alert and oriented, no acute distress. HEAD AND NECK: Unremarkable. CARDIAC: Regular rate and rhythm without murmurs, rubs or gallops. LUNGS: Clear to auscultation bilaterally. ABDOMEN: Soft, nontender, nondistended. EXTREMITIES: No clubbing, cyanosis or edema. NEUROLOGIC: No focal deficits. MUSCULOSKELETAL: No trauma. DIAGNOSTIC STUDIES: Cardiac enzymes are negative x 3. Hemoglobin and platelets are within normal limits. EKG is unremarkable. CT angiogram of the chest is unremarkable. D-dimer is mildly elevated. Stress testing performed in 08/2019 did not reveal any ischemia with a normal ejection fraction. No evidence of other significant pulmonary hypertension, etc. IMPRESSION: Noncardiac chest pain. RECOMMENDATIONS: She had a stress test within the last 1 year, which was unremarkable. Her symptoms do not appear to represent any specific cardiac pathology. Continue musculoskeletal treatment for her chronic pain issues from her mastectomies. Otherwise, no further cardiovascular testing necessary at this time. Thank you for this consultation. JESÚS PHILLIPS MD DR: KAYLEE/brandon JOB#: [id number] / [id number]
== END 2020-06-19 12:00 | disposition home or self-care (01) ==
LOC: ER 15:28 → 2 NORTH 19:16
PROVIDERS: ADMIT Internal Medicine; ATTEND Internal Medicine
DX: R07.89 Other chest pain (principal); I10 Essential (primary) hypertension; E78.5 Hyperlipidemia, unspecified; R06.09 Other forms of dyspnea; E66.9 Obesity, unspecified; Z68.41 Body mass index [BMI] 40.0-44.9, adult; Z85.3 Personal history of malignant neoplasm of breast; Z90.710 Acquired absence of both cervix and uterus; Z90.13 Acquired absence of bilateral breasts and nipples; Z90.49 Acquired absence of other specified parts of digestive tract; Z98.890 Other specified postprocedural states
CPT/HCPCS: 36415; 71045; 71275; 80048; 80061; 80076; 83690; 84484; 85025; 85379; 93005; 94618; 96374; 99285; G0378; J1885; Q9967; G0379

== ENCOUNTER → 2020-11-26 | Outpatient (CLI) | payer MEDICARE ==
[~2020-11-26] MED LIST changes: +AMLO-186 PO; -AMLO5TAB10 PO; +CHOL500050 PO; +GABA600T7 PO; +LISI10TA16 PO; -LISI10TA2 PO; +METO-239 PO; -OMEP40CA45 PO; +OMEP40CA7 PO; +REGADENOSON 0.4 MG/5 ML DISP.SYRIN. IV ONE; +[UNRECOGNIZED DRUG - OTHER]
--- NOTE | 2020-11-26 16:15 | RAD ---
MR#: [id number] Date of Study: 11/26/2020 Ordering Physician: NAOMI DOW, Referring Physician: ROBERTO ALEXANDRE Tech: RT Paul Fragoso) (N) APPROVED REPORT Test Type: Pharmacological Stress Nurse/Tech: King Sánchez RN Test Indications: Chest Pain Cardiac History: HTN, Heart Cath=no intervention, See EMR. Medications: See EMR Medical History: See EMR Resting ECG: SR Resting Heart Rate: 77 bpm Resting Blood Pressure: 154/70mmHg Pretest Chest Pain: No chest pain Nurse/Tech Notes Lungs CTA, Heart tones regular. Consent: The procedure was explained to the patient in lay terms. Informed consent was witnessed. Geraldo eout was entered into [employer]. History and Stress Test performed by RT Paul Chirinos) (N) Pharm. Details Pharmacologic stress testing was performed using 0.4mg per 5ml of regadenoson given intravenously ove r 7-10 seconds. Stress Symptoms Pt. c/o chest tightness in stage 1 @ 01:00; chest tightness had decreased to 3/10 by the end of rest. Pt denies any other symptoms. VSS. POST EXERCISE Reason for Termination: Infusion complete Max HR: 119 bpm Max Blood Pressure: 160/70mmHg Blood Pressure response to exercise: Normal blood pressure response during stress. Heart Rate response to exercise: WNL Chest Pain: Yes. See stress symptoms. Arrhythmia: No. ST Change: No. INTERPRETATION Stress EKG Conclusion: Baseline EKG showed sinus rhythm. No ischemic changes at peak stress. No arr hythmias. Imaging Protocol IMAGE PROTOCOL: Rest Tc-99m/stress Tc-99m 1 day Rest: Stress: Viability: Radiopharm.Tc99m TdzogtsetZq32h Sestamibi Dose10.7mCi 30.1mCi Duration 13min. 13min. Img Date 11/26/2020 11/26/2020 Inj-Img Prth32fzv. 60min. Rest Admin Site:IV - Left AntecubitalAdministrator:RT Breanne ChirinosR)(N) Stress Admin Site: IV - Left AntecubitalAdministrator: Tg Bianchi, RT (R)(N) STRESS DATA End Diast. Vol.81.0mlLVEDV index BSA43.0ml End Syst. Vol.20.0mlLVESV index BSA11.0ml Myocardial Ysyc278.0gEject. Jvqoudfl68.0% Stress Scores Regional WT0.00Summed WT1.00 Regional WM0.00Summed WM0.00 Study quality was good. Left Ventricular size was Normal at Rest and Stress. Lung uptake was . Left Ventricular ejection fraction is 74%. The rest and stress images show normal perfusion, normal contraction and thickening. LV Perf. Quant 17 Seg. SSS1.00 17 Seg. SRS1.00 17 Seg. SDS1.00 Stress Defect Extent (% LAD)0.00Rest Defect Extent (% LAD)0.00Rev. Defect Extent (% LAD)0.00 Stress Defect Extent (% LCX) 0.00Rest Defect Extent (% LCX)0.00Rev. Defect Extent (% LCX)0.00 Stress Defect Extent (% RCA)0.00Rest Defect Extent (% RCA)6.70Rev. Defect Extent (% RCA)0.00 Stress Defect Extent (% JUAN)0.00Rest Defect Extent (% JUAN)1.30Rev. Defect Extent (% JUAN)0.00 Conclusion 1. Regadenoson cardioisotope stress test did not show any evidence of ischemia or infarct. 2. Normal left ventricular systolic function with ejection fraction calculated at 74%. 3. Low risk for cardiac events. Signed by : Tomas Gao, Electronically Approved : 11/26/2020 16:15:06
== END ==
LOC: NM 08:55
PROVIDERS: ATTEND Internal Medicine Cardiovascular Disease
DX: R07.9 Chest pain, unspecified (principal)
CPT/HCPCS: 78452; 93017; A9500; J2785

== ENCOUNTER → 2021-01-19 | Outpatient (CLI) | payer MEDICARE ==
[~2021-01-19] MED LIST changes: +OMEP40CA45 PO; -OMEP40CA7 PO; -REGADENOSON 0.4 MG/5 ML DISP.SYRIN. IV ONE
--- NOTE | 2021-01-19 16:21 | KCIC ---
5 views lumbar spine without comparison for chronic low back pain, pain in the bilateral feet. FINDINGS: Nerve stimulator is present. There is subtle chronic wedging of T11. No acute osseous or al ignment abnormalities identified. There is mild narrowing at L5-S1 intervertebral disc space. Bilater al facet arthrosis at the lower lumbar levels. Extensive aortoiliac vasculopathy. IMPRESSION: 1. Old compression fracture T11. 2. No acute osseous or alignment abnormality. 3. Extensive aortoiliac vasculopathy. Electronically signed by: Vernon Still MD (01/19/2021 4:18 PM) [id number]
== END ==
LOC: KCIC 10:32
PROVIDERS: ATTEND Family Medicine
DX: S22.089A Unspecified fracture of T11-T12 vertebra, initial encounter for closed fracture (principal); X58.XXXA Exposure to other specified factors, initial encounter; Y93.89 Activity, other specified; Y92.89 Other specified places as the place of occurrence of the external cause; Y99.8 Other external cause status
CPT/HCPCS: 72110